=== PATIENT | female | born 1970 | race Caucasian/White ===

== ENCOUNTER → 2016-11-27 | Outpatient (REF) | payer MEDICARE, MEDICAID ==
[~2016-11-27] MED LIST: ABIL10TA; AMBI10TA; AMMONIUM LACTATE; COLA100C2; DEPA500T; KLON1TAB; MACR50CA; MACROBID; OXYB5TAB4; PAXI40TA; RISP1TAB; RISP2TAB12; SERO400T; SWEEN; THERGRAN
[2016-11-27 12:58] LABS: FREE T4 1.31 NG/DL (0.76-1.46)
== END ==
LOC: M SFHCLERA 09:46
PROVIDERS: ATTEND Family Medicine
DX: E03.9 Hypothyroidism, unspecified (principal); Z79.899 Other long term (current) drug therapy

== ENCOUNTER → 2016-12-19 | Outpatient (CLI) | payer MEDICARE, MEDICAID ==
[2016-12-19 07:02] LABS: BASO % 0.2 % (0.0-1.0); EOS % 0.8 % (0.0-3.0); LARGE UNSTAINED CELL # 0.1 K/mm3 (0.0-0.4); LARGE UNSTAINED CELL % 1.2 % (0.0-4.0); LYMPH # 1.8 K/mm3 (1.5-4.5); MEAN CORPUSCULAR HEMOGLOBIN 34.2 pg (27.0-33.0); MEAN CORPUSCULAR HGB CONC 33.4 g/dl (32.0-36.5); MEAN CORPUSCULAR VOLUME 102.4 fl (80.0-96.0); MONO # 0.3 K/mm3 (0.0-0.8); MONO % 5.4 % (0.0-5.0); NEUTROPHILS # 3.8 K/mm3 (1.8-7.7); NEUTROPHILS % 63.4 % (36.0-66.0); PLATELET COUNT, AUTOMATED 245 k/mm3 (150-450); RED CELL DISTRIBUTION WIDTH 12.1 % (11.5-14.5)
[2016-12-19 07:25] LABS: ALBUMIN 3.3 GM/DL (3.2-5.2); ALBUMIN/GLOBULIN RATIO 0.94 (1.00-1.93); BILIRUBIN,DIRECT 0.1 MG/DL (0.0-0.2); BILIRUBIN,TOTAL 0.3 MG/DL (0.2-1.0); TOTAL PROTEIN 6.8 GM/DL (6.4-8.2)
== END ==
LOC: M LAB 06:30
PROVIDERS: ATTEND Anesthesiology Pain Medicine
DX: Z79.899 Other long term (current) drug therapy (principal)

== ENCOUNTER → 2017-01-13 | Outpatient (CLI) | payer MEDICARE, MEDICAID ==
--- NOTE | 2017-01-13 10:42 | REPMRS ---
Patient History The patient states she had a clinical breast exam in 12/2016. Patient is nulliparous. Taking hormonal contraceptives for 13 years. Digital Woman Screen Mammo: January 13, 2017 - Exam #: [id number] Bilateral CC and MLO view(s) were taken. Technologist: Maral Ackerman, Technologist Prior study comparison: January 14, 2016, digital woman screen mammo performed at [facility]. January 11, 2015, digital woman screen mammo performed at [facility]. January 06, 2014, digital woman screen mammo performed at [facility]. FINDINGS: There are scattered fibroglandular densities. There has been no change in the appearance of the mammogram from the prior studies. There is a mild amount of scattered fibroglandular density which is fairly symmetric. There is no interval development of dominant mass, architectural distortion, or clustered microcalcification suggestive of malignancy. ASSESSMENT: BI-RADS/ACR category 1 mammogram. Negative. Recommendation Routine screening mammogram in 1 year (for women over age 40). This mammogram was interpreted with the aid of an FDA-approved computer-aided dectection system. Electronically Signed By: Ramirez Eubanks MD 01/13/17 [id number]
== END ==
LOC: M WHC 09:43
PROVIDERS: ATTEND Nurse Practitioner Family
DX: Z01.419 Encounter for gynecological examination (general) (routine) without abnormal findings (principal); Z12.31 Encounter for screening mammogram for malignant neoplasm of breast; Z92.89 Personal history of other medical treatment; Z92.0 Personal history of contraception
CPT/HCPCS: G0101; G0123; G0202

== ENCOUNTER → 2017-01-13 | Outpatient (REF) | payer MEDICARE, MEDICAID | LOC: M SFHCWAGY 10:07 | PROVIDERS: ATTEND Nurse Practitioner Family | DX: Z12.4 Encounter for screening for malignant neoplasm of cervix (principal) ==

== ENCOUNTER → 2017-09-27 | Outpatient (CLI) | payer MEDICARE, MEDICAID ==
[2017-09-27 17:16] LABS: BASO % 0.3 % (0.0-1.0); EOS % 0.2 % (0.0-3.0); HEMATOCRIT 41.3 % (36.0-47.0); HEMOGLOBIN 13.5 g/dl (12.0-16.0); IMMATURE GRANULOCYTE % 0.3 % (0-3.0); LYMPH # 1.9 10^3/uL (1.5-4.5); LYMPH % 29.1 % (24.0-44.0); MEAN CORPUSCULAR HEMOGLOBIN 33.9 pg (27.0-33.0); MEAN CORPUSCULAR HGB CONC 32.7 g/dl (32.0-36.5); MEAN CORPUSCULAR VOLUME 103.8 fl (80.0-96.0); MONO # 0.5 10^3/uL (0.0-0.8); MONO % 7.4 % (0.0-5.0); NEUTROPHILS # 4.1 10^3/uL (1.8-7.7); NEUTROPHILS % 62.7 % (36.0-66.0); PLATELET COUNT, AUTOMATED 257 10^3/uL (150-450); RED BLOOD COUNT 3.98 10^6/uL (4.00-5.40); RED CELL DISTRIBUTION WIDTH 12.8 % (11.5-14.5); WHITE BLOOD COUNT 6.6 10^3/uL (4.0-10.0)
[2017-09-27 18:18] LABS: ALBUMIN 3.5 GM/DL (3.2-5.2); ALBUMIN/GLOBULIN RATIO 0.97 (1.00-1.93); ALKALINE PHOSPHATASE 42 U/L (45-117); ALT/SGPT 15 U/L (12-78); AST/SGOT 9 U/L (7-37); BILIRUBIN,DIRECT < 0.1 MG/DL (0.0-0.2); BILIRUBIN,TOTAL 0.3 MG/DL (0.2-1.0); TOTAL PROTEIN 7.1 GM/DL (6.4-8.2); VALPROIC ACID (DEPAKOTE) 73.9 UG/ML (50.0-100.0)
== END ==
LOC: M WUC 09:17
DX: Z51.81 Encounter for therapeutic drug level monitoring (principal); Z79.899 Other long term (current) drug therapy
CPT/HCPCS: 80164

== ENCOUNTER → 2017-11-26 | Outpatient (REF) | payer MEDICARE, MEDICAID ==
[2017-11-26 17:44] LABS: ESTIMATED AVERAGE GLUCOSE 108 MG/DL (60-110); HEMOGLOBIN A1c 5.4 %
== END ==
LOC: M SFHCLERA 11:13
DX: E03.9 Hypothyroidism, unspecified (principal); Z13.1 Encounter for screening for diabetes mellitus; Z79.899 Other long term (current) drug therapy
CPT/HCPCS: 84443

== ENCOUNTER → 2018-01-14 | Outpatient (CLI) | payer MEDICARE, MEDICAID | LOC: M WHC 10:11 | DX: Z12.31 Encounter for screening mammogram for malignant neoplasm of breast (principal); Z01.411 Encounter for gynecological examination (general) (routine) with abnormal findings (principal); N81.10 Cystocele, unspecified | CPT/HCPCS: 77067 ==

== ENCOUNTER → 2018-09-04 | Outpatient (CLI) | payer MEDICARE, MEDICAID ==
[2018-09-04 11:57] LABS: FREE T4 1.08 NG/DL (0.76-1.46); THYROID STIMULATING HORMONE 1.92 uIU/ML (0.358-3.740)
[2018-09-06 00:08] LABS: HUMAN GROWTH HORMONE 0.1 ng/mL (0.0-10.0)
== END ==
LOC: M WUC 09:16
PROVIDERS: ATTEND Nurse Practitioner
DX: D35.2 Benign neoplasm of pituitary gland (principal); Z51.81 Encounter for therapeutic drug level monitoring; Z79.899 Other long term (current) drug therapy

== ENCOUNTER → 2018-09-04 | Outpatient (CLI) | payer MEDICARE, MEDICAID ==
[2018-09-04 12:00] LABS: CHOLESTEROL RISK RATIO 2.942 (<5)
== END ==
LOC: M WUC 09:26
PROVIDERS: ATTEND Psychiatry & Neurology Psychiatry
DX: Z79.899 Other long term (current) drug therapy (principal)

== ENCOUNTER 2018-10-16 12:48 | Emergency (ER) | payer MEDICARE, MEDICAID ==
[~2018-10-16] VITALS: Ht 167.6 cm; Wt 67.3 kg
[2018-10-16 12:48] VITALS: BP 132/64
[2018-10-16] MEDS ORDERED: SERT-155 (12:55)
[2018-10-16] MEDS ORDERED: BUPR150T3 PO (12:55)
[2018-10-16] MEDS ORDERED: PRAZ1CAP (12:55)
[2018-10-16] MEDS ORDERED: LEVO88TA3 (12:55)
[2018-10-16] MEDS ORDERED: TRAZ-160 PO (12:55)
[2018-10-16] MEDS ORDERED: KLON2TAB PO ×2 (13:25→13:37)
== END 2018-10-16 13:39 | disposition home or self-care (01) ==
LOC: M ED 12:48
DX: Z76.0 Encounter for issue of repeat prescription (principal); F41.9 Anxiety disorder, unspecified; F32.9 Major depressive disorder, single episode, unspecified; F43.10 Post-traumatic stress disorder, unspecified; Z79.899 Other long term (current) drug therapy; Z88.0 Allergy status to penicillin

== ENCOUNTER 2018-11-25 09:53 | Emergency (ER) | payer MEDICARE, MEDICAID ==
[~2018-11-25 09:53] MED LIST changes: +BUPR150T3 PO; +KLON2TAB PO; +LEVO88TA3; +PRAZ1CAP; +SERT-155; +TRAZ-160 PO
[2018-11-25] MEDS ORDERED: OXYB10TA (10:25)
[2018-11-25] MEDS ORDERED: DIVA500T94 (10:25)
[2018-11-25] MEDS ORDERED: CLON2TAB7 (10:25)
[2018-11-25] MEDS ORDERED: NITR100C2 (10:25)
[2018-11-25] MEDS ORDERED: CRYS28TA (10:25)
[2018-11-25] MEDS ORDERED: ADACEL/BOOSTRIX VACCINE (DIPHTH/PERTUSS/ACELL/TETANUS)0.5ML SYR (90715) IM ONE (11:00)
[2018-11-25] MEDS ORDERED: LIDOCAINE 1% MDV 20ML VIAL SC ONE (11:00)
--- NOTE | 2018-11-25 11:20 | REP ---
CT BRAIN WITHOUT CONTRAST: HISTORY: Trauma. No comparison brain CT. CT FINDINGS: Digital preliminary die developer radiograph shows no calvarial abnormality. Bone window settings demonstrate an intact bony calvarium. No skull fracture is appreciated. There is an area of scalp swelling and irregularity over the left superior orbital margin. No other scalp hematoma is appreciated. Visualized paranasal sinuses are clear. No intraorbital abnormality is seen. On soft tissue window settings, there is moderate generalized atrophy, unusual at this patient's age. There is no evidence of intracranial hemorrhage. No extra-axial fluid collection is seen. No mass or midline shift is observed. IMPRESSION: Moderate diffuse cerebral atrophy in this young woman. Mild left supraorbital scalp swelling. No skull fracture or intracranial injury. Electronically Signed by Harry Eubanks MD 11/25/2018 01:08 P
--- NOTE | 2018-11-25 11:27 | REP ---
MAXILLOFACIAL CT STUDY WITHOUT CONTRAST: HISTORY: Trauma. FINDINGS: There is some left frontal superior and periorbital margin scalp swelling. No orbital fracture is appreciated. There is a tiny area of opaque debris on the skin superolaterally in the left periorbital soft tissues. Zygomatic arches are intact. No maxillary or mandibular fracture is appreciated. The patient is status post extensive cervical spine fusion. The visualized paranasal sinuses are clear. No intraorbital abnormality is seen. There are is evidence of a focal deficit or old surgical or post traumatic fenestration in the nasal septum posteriorly and superiorly. The nasal turbinate soft tissues are unremarkable. No inflammatory changes are seen. IMPRESSION: Soft-tissue swelling in the left frontal soft tissues with a tiny focus of opaque debris on the skin at this level. No facial fractures seen. 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 Developmental, versus postsurgical versus granulomatous disease. No inflammatory changes are visible. Electronically Signed by Harry Eubanks MD 11/25/2018 01:08 P
--- NOTE | 2018-11-25 11:29 | REP ---
CT STUDY OF THE CERVICAL SPINE WITHOUT CONTRAST: HISTORY: Trauma. TECHNIQUE: Helical scanning is acquired. 2 mm axial images are reformatted. Coronal and sagittal MPR images are generated. CT FINDINGS: The patient is status post bilateral posterior element screw karina fusion from C3 through the upper thoracic spine. Extensive laminectomies are performed from C3 through C6. There is ventral fusion via bridging osteophytes from C5 through T1 anteriorly. Alignment is normal. Vertebral body heights are preserved. No vertebral fracture is appreciated. There is degenerative disc change at multiple levels. There is osteoarthritic change at the articulation between the dens and the anterior to C1. Lung apices are clear. No extra vertebral abnormality is observed. IMPRESSION: Extensive surgical changes with multiple levels of laminectomy, C3 through C6, bilateral C3 through upper T-spine fusion hardware. Degenerative changes. No traumatic abnormality noted. Electronically Signed by Harry Eubanks MD 11/25/2018 01:09 P
[2018-11-25] MEDS ORDERED: ACETAMINOPHEN TAB 650MG DOSE (2X325MG) PO ONE (13:00)
[2018-11-25 13:25] VITALS: BP 106/62
== END 2018-11-25 13:29 | disposition home or self-care (01) ==
LOC: EDBD 09:53 → M ED 09:53
DX: S01.81XA Laceration without foreign body of other part of head, initial encounter (principal); W01.0XXA Fall on same level from slipping, tripping and stumbling without subsequent striking against object, initial encounter; Y92.89 Other specified places as the place of occurrence of the external cause; R56.9 Unspecified convulsions; Z88.0 Allergy status to penicillin

== ENCOUNTER → 2018-12-02 | Outpatient (REF) | payer MEDICARE, MEDICAID ==
[~2018-12-02] MED LIST changes: +CLON2TAB7; +CRYS28TA; +DIVA500T94; +NITR100C2; +OXYB10TA; -TRAZ-160 PO; +TRAZ-252 PO
[2018-12-02 11:50] LABS: CHOLESTEROL RISK RATIO 2.8 (<5); THYROID STIMULATING HORMONE 2.44 uIU/ML (0.358-3.740)
[2018-12-02 12:06] LABS: HEMOGLOBIN A1c 4.9 %
== END ==
LOC: M SFHCLERA 08:45
PROVIDERS: ATTEND Family Medicine
DX: Z00.00 Encounter for general adult medical examination without abnormal findings (principal); E03.9 Hypothyroidism, unspecified
CPT/HCPCS: 80061; 83036; 84443; G0463

== ENCOUNTER → 2019-01-17 | Outpatient (CLI) | payer MEDICARE, MEDICAID ==
--- NOTE | 2019-01-17 12:38 | REPMRS ---
Patient History The patient states she had a clinical breast exam in 01/2019. Patient is nulliparous. Taking hormonal contraceptives for 15 years. 3D TOMOSYNTHESIS WAS PERFORMED. The [facility] lifetime risk for breast cancer is 12.6%. Digital Woman Screen Mammo: January 17, 2019 - Exam #: [id number] Bilateral CC and MLO view(s) were taken. Technologist: Maral Ackerman, Technologist Prior study comparison: January 14, 2018, bilateral digital woman screen mammo performed at [facility]. January 13, 2017, digital woman screen mammo performed at [facility]. FINDINGS: The breast tissue is heterogeneously dense. This may lower the sensitivity of mammography. There has been no change in the appearance of the mammogram from the prior studies. There is a moderate amount of residual fibroglandular tissue which is fairly symmetric. There is no interval development of dominant mass, areas of architectural distortion, or clustered microcalcification typical of malignancy. Assessment: BI-RADS/ACR category 1 mammogram. Negative Mammogram. Recommendation Routine screening mammogram in 1 year (for women over age 40). This mammogram was interpreted with the aid of an FDA-approved computer-aided dectection system. Electronically Signed By: Brant Person MD 01/17/19 [id number]
== END ==
LOC: M WHC 11:14
PROVIDERS: ATTEND Nurse Practitioner Family
DX: Z12.31 Encounter for screening mammogram for malignant neoplasm of breast (principal); Z92.0 Personal history of contraception

== ENCOUNTER → 2019-12-13 | Outpatient (REF) | payer MEDICARE, MEDICAID ==
[~2019-12-13] MED LIST changes: -OXYB10TA; +OXYB10TA23; -SERT-155; +SERT50TA29
== END ==
LOC: M SFHCLERA 12:33
PROVIDERS: ATTEND Family Medicine
DX: E03.9 Hypothyroidism, unspecified (principal)
CPT/HCPCS: 36415; 84443; G0463

== ENCOUNTER → 2020-01-18 | Outpatient (CLI) | payer MEDICARE ==
--- NOTE | 2020-01-18 11:49 | REPMRS ---
Patient History The patient states she had a clinical breast exam in January 2020. Taking hormonal contraceptives for 15 years. Digital Woman Screen Mammo: January 18, 2020 - Exam #: [id number] Bilateral CC and MLO view(s) were taken. Technologist: Sharon Fenton, Technologist Prior study comparison: January 17, 2019, bilateral digital woman screen mammo performed at [facility]. January 14, 2018, bilateral digital woman screen mammo performed at [facility]. January 13, 2017, digital woman screen mammo performed at [facility]. FINDINGS: The breast tissue is heterogeneously dense. This may lower the sensitivity of mammography. The Volpara volumetric breast density category is: C. There is a moderate amount of heterogeneously dense fibroglandular tissue which is fairly symmetric. There is no interval development of dominant mass, architectural distortion, or grouped microcalcification typical of malignancy. There has been no change in the appearance of the mammogram from the prior studies. Assessment: BI-RADS/ACR category 1 mammogram. Negative Mammogram. Recommendation Routine screening mammogram of both breasts in 1 year (for women over age 40). This patient's Lifetime Breast Cancer RIsk is estimated at 12.5 %. This mammogram was interpreted with the aid of an FDA-approved computer-aided dectection system. Electronically Signed By: Ramirez Eubanks MD 01/18/20 [id number]
== END ==
LOC: M WHC 10:40
PROVIDERS: ATTEND Nurse Practitioner Family
DX: Z12.31 Encounter for screening mammogram for malignant neoplasm of breast (principal); Z92.0 Personal history of contraception
CPT/HCPCS: 77067; G0101; G0123

== ENCOUNTER → 2020-01-18 | Outpatient (REF) | payer MEDICARE, MEDICAID | LOC: M SFHCWAGY 17:01 | PROVIDERS: ATTEND Nurse Practitioner Family | DX: Z12.4 Encounter for screening for malignant neoplasm of cervix (principal) ==

== ENCOUNTER → 2020-12-27 | Outpatient (CLI) | payer MEDICARE, MEDICAID ==
[~2020-12-27] MED LIST changes: +BUPR150T12 PO; -BUPR150T3 PO
[2020-12-27 08:24] LABS: CHOLESTEROL RISK RATIO 2.473 (<5); THYROID STIMULATING HORMONE 3.18 uIU/ML (0.358-3.740)
[2020-12-27 09:53] LABS: TOTAL 25(OH) VITAMIN D 38.8 NG/ML (30.0-100.0)
== END ==
LOC: M LAB 07:05
PROVIDERS: ATTEND Family Medicine
DX: Z00.00 Encounter for general adult medical examination without abnormal findings (principal); E03.9 Hypothyroidism, unspecified; E55.9 Vitamin D deficiency, unspecified

== ENCOUNTER → 2021-01-14 | Outpatient (CLI) | payer MEDICARE, MEDICAID | LOC: M LAB 07:02 | PROVIDERS: ATTEND Physician Assistant Medical | DX: R56.9 Unspecified convulsions (principal) ==

== ENCOUNTER → 2021-01-22 | Outpatient (CLI) | payer MEDICARE, MEDICAID ==
--- NOTE | 2021-01-22 14:54 | REPMRS ---
Patient History The patient states she had a clinical breast exam in January 2021. Patient is nulliparous. Taking hormonal contraceptives for 16 years. Pt denied . 2D CC views only due to pts condition, Pt unable to turn her head, [facility] client. Best images possible, Covid vaccines 07/26/20 right arm, 08/23/20 right arm. Patient states no breast complaints today. Patient has signed MRS History Sheet. Digital Woman Screen Mammo: January 22, 2021 - Exam #: [id number] Bilateral CC and MLO view(s) were taken. Technologist: RT Dorothy Prior study comparison: January 18, 2020, bilateral digital woman screen mammo performed at [facility]. January 17, 2019, bilateral digital woman screen mammo performed at [facility]. FINDINGS: The breast tissue is heterogeneously dense. This may lower the sensitivity of mammography. Screening. Digital screening (2D) mammography was performed bilaterally in the CC and MLO projections. Additionally, breast tomosynthesis (3D mammography) was performed bilaterally in the CC and MLO projections. Todays exam was compared to the prior exam/exams.There are no prior DBT images for comparison. By history, the patient has no complaints of a palpable breast abnormality or other significant breast complaints. The breasts are unchanged in size and shape. Dense heterogenous fibroglandular elements are seen bilaterally to such a degree that the sensitivity of the mammogram in detecting cancer is decreased. There are no caprice-soft tissue densities or spiculated masses. There is no internal architectural distortion. There are no suspicious caprice-calcific clusters. Skin thickening or nipple retraction is not present. IMPRESSION: BI-RADS Category 2- Benign Findings. There is no evidence of malignant alteration of the breasts. Followup examination recommended in one year. The Volpara volumetric breast density category is C, the breasts are heterogenously dense which may obscure small masses. This mammogram was read with the assistance of [employer],an FDA approved computer aided detection system for mammography. The lifetime Tyrer-Cuzick score is 12.3 % Due to the density of the breasts or Tyrer Cuzick score of 20% or greater, MRI/whole breast screening ultrasound is warranted. Negative x-ray reports should not delay surgical consultation if a dominant or clinically suspicious mass is present. Not all breast cancers can be identified by mammography. Therefore, we recommend that you continue to perform regular breast self-examination and physical examination and then promptly contact your physician of any concerns or changes. Adenosis and dense breasts may obscure an underlying neoplasm. Assessment: BI-RADS/ACR category 2 mammogram. Benign Findings. Recommendation Routine screening mammogram of both breasts in 1 year. Electronically Signed By: Timbo Matthews DO 01/22/21 [id number]
== END ==
LOC: M WHC 13:40
PROVIDERS: ATTEND Nurse Practitioner Women's Health
DX: Z12.31 Encounter for screening mammogram for malignant neoplasm of breast (principal); Z92.0 Personal history of contraception
CPT/HCPCS: 77063; 77067; G0101

== ENCOUNTER → 2021-08-07 | Outpatient (CLI) | payer MEDICARE, MEDICAID | LOC: M WUC 08:30 | PROVIDERS: ATTEND Physician Assistant Medical | DX: R56.9 Unspecified convulsions (principal) ==

== ENCOUNTER → 2021-08-28 | Outpatient (CLI) | payer MEDICARE, MEDICAID ==
[2021-08-28 12:23] LABS: HEMATOCRIT 33.1 % (36.0-47.0); HEMOGLOBIN 10.5 g/dl (12.0-15.5); MEAN CORPUSCULAR HEMOGLOBIN 32.9 pg (27.0-33.0); MEAN CORPUSCULAR HGB CONC 31.7 g/dl (32.0-36.5); MEAN CORPUSCULAR VOLUME 103.8 fl (80.0-96.0); PLATELET COUNT, AUTOMATED 384 10^3/uL (150-450); RED BLOOD COUNT 3.19 10^6/uL (4.00-5.40); WHITE BLOOD COUNT 10.6 10^3/uL (4.0-10.0)
[2021-08-28 12:53] LABS: ALBUMIN 2.6 GM/DL (3.2-5.2); BILIRUBIN,DIRECT 0.1 MG/DL (0.0-0.2); BILIRUBIN,TOTAL 0.2 MG/DL (0.2-1.0); TOTAL PROTEIN 6.2 GM/DL (6.4-8.2); VALPROIC ACID (DEPAKOTE) 132.1 UG/ML (50.0-100.0)
== END ==
LOC: M WUC 10:01
PROVIDERS: ATTEND Psychiatry & Neurology Psychiatry
DX: F43.10 Post-traumatic stress disorder, unspecified (principal); F91.9 Conduct disorder, unspecified; F71 Moderate intellectual disabilities

== ENCOUNTER 2021-08-30 11:58 | Emergency (ER) | payer MEDICARE, MEDICAID ==
[~2021-08-30] VITALS: Ht 165.1 cm; Wt 55.2 kg
[2021-08-30 12:14] VITALS: BP 132/87
== END 2021-08-30 13:42 | disposition left against medical advice (07) ==
LOC: M ED 11:58
DX: Z53.21 Procedure and treatment not carried out due to patient leaving prior to being seen by health care provider (principal)

== ENCOUNTER → 2021-09-23 | Outpatient (CLI) | payer MEDICARE, MEDICAID ==
[~2021-09-23] MED LIST changes: +E-Z-GAS II EFFERVESCENT PACKET (SODIUM BICARB./CITRIC ACID/SIMETHICONE) As Ordered ONE; +E-Z-HD 98% w/w 340GM SUSP BTL As Ordered ONE; +E-Z-PAQUE 96% w/w SUSP 176GM BTL As Ordered ONE
== END ==
LOC: M RAD 09:01
PROVIDERS: ATTEND Student in an Organized Health Care Education/Training Program
DX: R13.10 Dysphagia, unspecified (principal)

== ENCOUNTER → 2021-12-04 | Outpatient (CLI) | payer MEDICARE, MEDICAID ==
[~2021-12-04] MED LIST changes: +BARIUM SULFATE 700 MG TABLET (E-Z-DISK) As Ordered ONE; -E-Z-GAS II EFFERVESCENT PACKET (SODIUM BICARB./CITRIC ACID/SIMETHICONE) As Ordered ONE; -E-Z-HD 98% w/w 340GM SUSP BTL As Ordered ONE; +VARIBAR NECTAR 40% w/v 240ML SUSP BTL As Ordered ONE; +VARIBAR PUDDING 40% w/v 230ML TUBE As Ordered ONE
== END ==
LOC: M RAD 10:43
PROVIDERS: ATTEND Student in an Organized Health Care Education/Training Program
DX: R13.10 Dysphagia, unspecified (principal)

== ENCOUNTER → 2021-12-25 | Outpatient (CLI) | payer MEDICARE, MEDICAID ==
[~2021-12-25] MED LIST changes: -BARIUM SULFATE 700 MG TABLET (E-Z-DISK) As Ordered ONE; -E-Z-PAQUE 96% w/w SUSP 176GM BTL As Ordered ONE; -VARIBAR NECTAR 40% w/v 240ML SUSP BTL As Ordered ONE; -VARIBAR PUDDING 40% w/v 230ML TUBE As Ordered ONE
[2021-12-25 13:01] LABS: BASO % 0.2 % (0.0-1.0); EOS % 0.6 % (0.0-3.0); HEMATOCRIT 40.1 % (36.0-47.0); HEMOGLOBIN 13.1 g/dl (12.0-15.5); LYMPH # 1.8 10^3/uL (1.5-5.0); LYMPH % 34.3 % (24.0-44.0); MEAN CORPUSCULAR HEMOGLOBIN 31.9 pg (27.0-33.0); MEAN CORPUSCULAR HGB CONC 32.7 g/dl (32.0-36.5); MEAN CORPUSCULAR VOLUME 97.6 fl (80.0-96.0); MONO # 0.3 10^3/uL (0.0-0.8); MONO % 5.1 % (2.0-8.0); NEUTROPHILS # 3.1 10^3/uL (1.5-8.5); NEUTROPHILS % 59.6 % (36.0-66.0); PLATELET COUNT, AUTOMATED 299 10^3/uL (150-450); RED BLOOD COUNT 4.11 10^6/uL (4.00-5.40); WHITE BLOOD COUNT 5.1 10^3/uL (4.0-10.0)
[2021-12-25 13:55] LABS: ALBUMIN 3.7 GM/DL (3.2-5.2); ALT/SGPT 20 U/L (12-78); BILIRUBIN,TOTAL 0.3 MG/DL (0.2-1.0); BLOOD UREA NITROGEN 16 MG/DL (7-18); CALCIUM LEVEL 9.3 MG/DL (8.5-10.1); CARBON DIOXIDE LEVEL 33 MEQ/L (21-32); CHLORIDE LEVEL 106 MEQ/L (98-107); CREATININE FOR GFR 0.72 MG/DL (0.55-1.30); FREE T4 1.36 NG/DL (0.76-1.46); GLOMERULAR FILTRATION RATE > 60.0 (>51); GLUCOSE, FASTING 89 MG/DL (70-100); POTASSIUM SERUM 4.4 MEQ/L (3.5-5.1); PREALBUMIN 24.1 MG/DL (20.0-40.0); SODIUM LEVEL 142 MEQ/L (136-145); THYROID STIMULATING HORMONE 0.588 uIU/ML (0.358-3.740); TOTAL PROTEIN 6.9 GM/DL (6.4-8.2)
== END ==
LOC: M WUC 08:55
PROVIDERS: ATTEND Student in an Organized Health Care Education/Training Program
DX: R63.6 Underweight (principal); E03.9 Hypothyroidism, unspecified

== ENCOUNTER → 2022-02-20 | Outpatient (CLI) | payer MEDICARE, MEDICAID ==
[~2022-02-20] MED LIST changes: -CLON2TAB7; +CLON2TAB7 PO; +COLA100C5 PO; +FAMO20TA PO; -OXYB10TA23; +OXYB10TA23 PO; +RISP0.5T21 PO; +RISP1TAB42 PO; -SWEEN; +SWEEN TOP; +SYST1SOL OU; +VITA100093 PO; +VITMTA PO
== END ==
LOC: M LABSMTC 10:31
PROVIDERS: ATTEND Anesthesiology
DX: Z01.812 Encounter for preprocedural laboratory examination (principal); Z20.822 Contact with and (suspected) exposure to COVID-19

== ENCOUNTER 2022-02-25 13:05 | Day surgery (SDC) | payer MEDICARE, MEDICAID ==
[~2022-02-25] VITALS: Ht 167.6 cm; Wt 47.2 kg
[~2022-02-25 13:05] MED LIST changes: +LIDOCAINE 2% 100MG/5ML SDV (FOR ANES.) As Ordered ONE; +NS 1,000 ML IV ONE; +fentaNYL 100 MCG/2 ML INJECTION As Ordered ONE; +propofoL 200 MG/20 ML VIAL As Ordered ONE
[2022-02-25] MEDS ORDERED: MIDAZOLAM INJ 2MG/2ML VIAL (J2250 PER 1MG) As Ordered ONE (14:54)
[2022-02-25 15:45] VITALS: BP 106/58
== END 2022-02-25 15:56 | disposition home or self-care (01) ==
LOC: M OPP 13:05
PROVIDERS: ATTEND Internal Medicine Gastroenterology
DX: R13.10 Dysphagia, unspecified (principal); R05.9 Cough, unspecified; R63.4 Abnormal weight loss; R93.3 Abnormal findings on diagnostic imaging of other parts of digestive tract; K22.4 Dyskinesia of esophagus; K22.2 Esophageal obstruction; E03.9 Hypothyroidism, unspecified; F41.9 Anxiety disorder, unspecified; F32.A Depression, unspecified; F43.10 Post-traumatic stress disorder, unspecified; F79 Unspecified intellectual disabilities; G47.00 Insomnia, unspecified; F63.9 Impulse disorder, unspecified; E55.9 Vitamin D deficiency, unspecified; R56.9 Unspecified convulsions; Z88.0 Allergy status to penicillin; Z88.1 Allergy status to other antibiotic agents; Z79.890 Hormone replacement therapy; Z79.899 Other long term (current) drug therapy; Z82.49 Family history of ischemic heart disease and other diseases of the circulatory system
CPT/HCPCS: 43249; J2250; J3010

== ENCOUNTER → 2022-04-09 | Outpatient (REF) | payer MEDICARE, MEDICAID ==
[~2022-04-09] MED LIST changes: -LIDOCAINE 2% 100MG/5ML SDV (FOR ANES.) As Ordered ONE; -NS 1,000 ML IV ONE; -fentaNYL 100 MCG/2 ML INJECTION As Ordered ONE; -propofoL 200 MG/20 ML VIAL As Ordered ONE
== END ==
LOC: M LAB REF 21:06
PROVIDERS: ATTEND Student in an Organized Health Care Education/Training Program
DX: R82.90 Unspecified abnormal findings in urine (principal)

== ENCOUNTER → 2022-04-17 | Outpatient (REF) | payer MEDICARE, MEDICAID ==
[2022-04-17 14:30] LABS: APPEARANCE, URINE MANUAL CLEAR (CLEAR); COLOR, URINE MANUAL YELLOW (YELLOW); PROTEIN, URINE MANUAL NEGATIVE (NEGATIVE); SPECIFIC GRAVITY,URINE MANUAL 1.025 (1.002-1.035)
[2022-04-17 14:31] LABS: BILIRUBIN, URINE MANUAL NEGATIVE (NEGATIVE); BLOOD URINE MANUAL NEGATIVE (NEGATIVE); GLUCOSE, URINE (UA) MANUAL 1+(100 MG/DL) mg/dL (NEGATIVE); KETONE, URINE MANUAL NEGATIVE (NEGATIVE); LEUKOCYTE ESTERASE, URINE MAN NEGATIVE (NEGATIVE); NITRITE, URINE MANUAL NEGATIVE (NEGATIVE); UROBILINOGEN, URINE MANUAL NORMAL (NORMAL)
== END ==
LOC: M SFHCLERA 14:19
PROVIDERS: ATTEND Student in an Organized Health Care Education/Training Program
DX: R82.90 Unspecified abnormal findings in urine (principal)

== ENCOUNTER → 2022-04-17 | Outpatient (CLI) | payer MEDICARE, MEDICAID ==
[~2022-04-17] MED LIST changes: +E-Z-GAS II EFFERVESCENT PACKET (SODIUM BICARB./CITRIC ACID/SIMETHICONE) As Ordered ONE; +E-Z-HD 98% w/w 340GM SUSP BTL As Ordered ONE; +E-Z-PAQUE 96% w/w SUSP 176GM BTL As Ordered ONE
== END ==
LOC: M RAD 08:58
PROVIDERS: ATTEND Physician Assistant Medical
DX: R13.10 Dysphagia, unspecified (principal)

== ENCOUNTER → 2022-05-28 | Outpatient (CLI) | payer MEDICARE, MEDICAID ==
[~2022-05-28] MED LIST changes: -E-Z-GAS II EFFERVESCENT PACKET (SODIUM BICARB./CITRIC ACID/SIMETHICONE) As Ordered ONE; -E-Z-HD 98% w/w 340GM SUSP BTL As Ordered ONE; -E-Z-PAQUE 96% w/w SUSP 176GM BTL As Ordered ONE; +ISOVUE-370 76% 100ML VIAL As Ordered ONE
== END ==
LOC: M RAD 13:35
PROVIDERS: ATTEND Thoracic Surgery (Cardiothoracic Vascular Surgery)
DX: Q27.8 Other specified congenital malformations of peripheral vascular system (principal)
CPT/HCPCS: 70498; 71275; Q9967

== ENCOUNTER 2022-10-14 09:34 | Outpatient (RCR) | payer MEDICARE, MEDICAID ==
[~2022-10-14 09:34] MED LIST changes: -ISOVUE-370 76% 100ML VIAL As Ordered ONE
== END 2022-10-17 ==
LOC: M ST 09:34
PROVIDERS: ATTEND Thoracic Surgery (Cardiothoracic Vascular Surgery)
DX: R13.10 Dysphagia, unspecified (principal)

== ENCOUNTER → 2022-10-20 | Outpatient (CLI) | payer MEDICARE, MEDICAID ==
[2022-10-20 16:12] LABS: BASO % 0.2 % (0.0-1.0); HEMOGLOBIN 12.8 g/dl (12.0-15.5); LYMPH % 7.4 % (24.0-44.0); MEAN CORPUSCULAR HEMOGLOBIN 32.4 pg (27.0-33.0); MEAN CORPUSCULAR HGB CONC 32.8 g/dl (32.0-36.5); MEAN CORPUSCULAR VOLUME 98.7 fl (80.0-96.0); MONO % 7.3 % (2.0-8.0); NEUTROPHILS # 11.1 10^3/uL (1.5-8.5); NEUTROPHILS % 84.8 % (36.0-66.0); PLATELET COUNT, AUTOMATED 258 10^3/uL (150-450); RED BLOOD COUNT 3.95 10^6/uL (4.00-5.40); WHITE BLOOD COUNT 13.1 10^3/uL (4.0-10.0)
[2022-10-20 16:30] LABS: INR 0.93; PARTIAL THROMBOPLASTIN TIME 28.2 SECONDS (24.8-34.2); PROTHROMBIN TIME 12.7 SECONDS (12.5-14.5)
[2022-10-20 19:54] LABS: ALBUMIN 3.8 G/DL (3.2-5.2); ALKALINE PHOSPHATASE 86 U/L (46-116); ALT/SGPT 35 U/L (7.0-40); AST/SGOT 26 U/L (<34); BILIRUBIN,TOTAL 0.5 MG/DL (0.3-1.2); BLOOD UREA NITROGEN 27 MG/DL (9-23); CALCIUM LEVEL 9.2 MG/DL (8.5-10.1); CARBON DIOXIDE LEVEL 30 MMOL/L (20-31); CHLORIDE LEVEL 102 MMOL/L (98-107); CREATININE FOR GFR 0.44 MG/DL (0.55-1.30); GLOMERULAR FILTRATION RATE > 60.0 (>51); GLUCOSE, FASTING 109 MG/DL (60-100); POTASSIUM SERUM 4.1 MMOL/L (3.5-5.1); SODIUM LEVEL 139 MMOL/L (136-145); TOTAL PROTEIN 6.9 G/DL (5.7-8.2)
== END ==
LOC: M WUC 11:46
PROVIDERS: ATTEND Student in an Organized Health Care Education/Training Program
DX: Z01.818 Encounter for other preprocedural examination (principal); R91.8 Other nonspecific abnormal finding of lung field; J44.9 Chronic obstructive pulmonary disease, unspecified

== ENCOUNTER → 2022-12-22 | Outpatient (REF) | payer MEDICARE, MEDICAID ==
[2022-12-22 15:44] LABS: APPEARANCE, URINE HAZY (CLEAR); BACTERIA, URINE AUTO NEGATIVE (NEGATIVE); BILIRUBIN, URINE AUTO NEGATIVE (NEGATIVE); BLOOD, URINE BLOOD NEGATIVE (NEGATIVE); COLOR, URINE AMBER (YELLOW); GLUCOSE, URINE (UA) AUTO NEGATIVE (NEGATIVE); KETONE, URINE AUTO TRACE mg/dL (NEGATIVE); LEUKOCYTE ESTERASE, URINE AUTO NEGATIVE (NEGATIVE); MUCUS, URINE SMALL (NEGATIVE); NITRITE, URINE AUTO NEGATIVE (NEGATIVE); PROTEIN, URINE AUTO NEGATIVE (NEGATIVE); RBC, URINE AUTO 0 /HPF (0-3); SPECIFIC GRAVITY URINE AUTO 1.019 (1.002-1.035); SQUAMOUS EPITHELIAL CELL UR AU 1 /HPF (0-6); WBC, URINE AUTO 1 /HPF (0-3)
== END ==
LOC: M SFHCLERA 15:24
PROVIDERS: ATTEND Student in an Organized Health Care Education/Training Program
DX: R41.82 Altered mental status, unspecified (principal); N39.9 Disorder of urinary system, unspecified

== ENCOUNTER → 2023-01-16 | Outpatient (CLI) | payer MEDICARE, MEDICAID | LOC: M WHC 12:07 | PROVIDERS: ATTEND Nurse Practitioner Family | DX: Z12.31 Encounter for screening mammogram for malignant neoplasm of breast (principal) ==

== ENCOUNTER 2023-04-03 00:31 | Inpatient (IN) | payer MEDICARE, MEDICAID ==
[~2023-04-03] VITALS: Ht 167.6 cm; Wt 45.5 kg
[~2023-04-03 00:31] MED LIST changes: +CLON-952 PO; -KLON2TAB PO; -SERT50TA29; +SERT50TA29 PO
[2023-04-03 01:12] LABS: BASO % 0.2 % (0.0-1.0); HEMATOCRIT 33.3 % (36.0-47.0); HEMOGLOBIN 10.7 g/dl (12.0-15.5); LYMPH # 0.9 10^3/uL (1.5-5.0); LYMPH % 5.5 % (24.0-44.0); MEAN CORPUSCULAR HEMOGLOBIN 31.9 pg (27.0-33.0); MEAN CORPUSCULAR HGB CONC 32.1 g/dl (32.0-36.5); MEAN CORPUSCULAR VOLUME 99.4 fl (80.0-96.0); MONO # 0.6 10^3/uL (0.0-0.8); NEUTROPHILS # 14.1 10^3/uL (1.5-8.5); PLATELET COUNT, AUTOMATED 410 10^3/uL (150-450); RED BLOOD COUNT 3.35 10^6/uL (4.00-5.40); WHITE BLOOD COUNT 15.7 10^3/uL (4.0-10.0)
[2023-04-03 01:24] LABS: INR 1.34; PROTHROMBIN TIME 16.2 SECONDS (12.5-14.5)
[2023-04-03 01:30] LABS: AMORPHOUS SEDIMENT SMALL (NEGATIVE); APPEARANCE, URINE HAZY (CLEAR); BACTERIA, URINE AUTO NEGATIVE (NEGATIVE); BILIRUBIN, URINE AUTO NEGATIVE (NEGATIVE); BLOOD, URINE BLOOD NEGATIVE (NEGATIVE); COLOR, URINE AMBER (YELLOW); GLUCOSE, URINE (UA) AUTO NEGATIVE (NEGATIVE); KETONE, URINE AUTO TRACE mg/dL (NEGATIVE); LEUKOCYTE ESTERASE, URINE AUTO NEGATIVE (NEGATIVE); MUCUS, URINE LARGE (NEGATIVE); NITRITE, URINE AUTO NEGATIVE (NEGATIVE); PROTEIN, URINE AUTO 1+ mg/dL (NEGATIVE); RBC, URINE AUTO 1 /HPF (0-3); SPECIFIC GRAVITY URINE AUTO 1.027 (1.002-1.035); SQUAMOUS EPITHELIAL CELL UR AU 0 /HPF (0-6); WBC, URINE AUTO 3 /HPF (0-3)
[2023-04-03 01:35] LABS: CK-MB VALUE MASS < 1.0 NG/ML (<3.6)
[2023-04-03 01:37] LABS: ALBUMIN 2.7 G/DL (3.2-5.2); ALKALINE PHOSPHATASE 100 U/L (46-116); ALT/SGPT 20 U/L (7.0-40); AMYLASE 20 U/L (30-118); AST/SGOT 18 U/L (<34); BILIRUBIN,DIRECT 0.2 MG/DL (<0.4); BILIRUBIN,TOTAL 0.5 MG/DL (0.3-1.2); BLOOD UREA NITROGEN 22 MG/DL (9-23); CALCIUM LEVEL 8.8 MG/DL (8.5-10.1); CARBON DIOXIDE LEVEL 29 MMOL/L (20-31); CHLORIDE LEVEL 106 MMOL/L (98-107); CPK CREATINE PHOSPHOKINASE 143 U/L (34-145); CREATININE FOR GFR 0.58 MG/DL (0.55-1.30); GLOMERULAR FILTRATION RATE > 60.0 (>51); GLUCOSE, FASTING 132 MG/DL (60-100); MB/CK RELATIVE INDEX 0.69 (< OR =4); SODIUM LEVEL 145 MMOL/L (136-145); TOTAL PROTEIN 7.1 G/DL (5.7-8.2)
[2023-04-03 01:44] LABS: PROCALCITONIN 0.47 ng/ml
[2023-04-03] MEDS ORDERED: NS 1,000 ML IV ONE (02:00)
[2023-04-03] MEDS ORDERED: IBUP-1114 PO (02:10)
[2023-04-03] MEDS ORDERED: LevoFLOXacin IV 750 MG in IV 1 EA IV ONE (02:20)
[2023-04-03] MEDS ORDERED: GUAI100L6 PO (02:39)
[2023-04-03] MEDS ORDERED: NEOM28OI EXT (02:39)
[2023-04-03] MEDS ORDERED: ALUM320S3 PO (02:39)
[2023-04-03] MEDS ORDERED: CVS13CRE TOP (02:39)
[2023-04-03] MEDS ORDERED: ACET1TAB55 PO (02:46)
[2023-04-03] MEDS ORDERED: IPRATROPIUM 0.5MG/ALBUTEROL 2.5MG INH SOL UD 3ML (DUONEB) NEB ONE ×2 (03:10)
[2023-04-03] MEDS ORDERED: guaiFENesin SYRUP 200MG 10ML UDC PO PRN (05:10)
[2023-04-03] MEDS ORDERED: SYNT88TA2 PO (05:20)
[2023-04-03] MEDS ORDERED: RISP1SS PO (05:20)
[2023-04-03] MEDS ORDERED: ZOLO100T PO (05:20)
[2023-04-03] MEDS ORDERED: BUPR75TA69 PO (05:20)
[2023-04-03] MEDS ORDERED: TRAZ-257 PO (05:20)
[2023-04-03] MEDS ORDERED: OXYB5TAB11 PO (05:20)
[2023-04-03] MEDS ORDERED: IBUP-1720 PO (05:20)
[2023-04-03] MEDS ORDERED: TRIPOIN9 TOP (05:20)
[2023-04-03] MEDS ORDERED: CLON-952 PO (05:20)
[2023-04-03] MEDS ORDERED: RISP1SOL PO (05:20)
[2023-04-03] MEDS ORDERED: ALUM45SU PO (05:20)
[2023-04-03] MEDS ORDERED: [UNRECOGNIZED DRUG - CODE] EXT (05:20)
[2023-04-03] MEDS ORDERED: NITR25SU3 PO (05:20)
[2023-04-03] MEDS ORDERED: ACET-907 PO (05:20)
[2023-04-03] MEDS ORDERED: ANIMCHW9 PO (05:20)
[2023-04-03] MEDS ORDERED: SENN-23 PO (05:20)
[2023-04-03] MEDS ORDERED: MOISCRE4 EXT (05:20)
[2023-04-03] MEDS ORDERED: GUAI5EL PO (05:20)
[2023-04-03] MEDS ORDERED: PRAZ1CAP PO (05:20)
[2023-04-03] MEDS ORDERED: HOME MED LIST COMPLETE! XX SCH (05:25)
[2023-04-03] MEDS: LR 1,000 ML IV SCH ×2 (06:56→17:20)
[2023-04-03] MEDS: LEVOTHYROXINE 88MCG TABLET (0.088 MG) PO SCH (06:57)
[2023-04-03 09:50] VITALS: BP 110/70; TEMP 97.9; O2SAT 99
[2023-04-03] MEDS: SENOKOT S TAB PO SCH ×3 (10:53→20:50)
[2023-04-03] MEDS: clonazePAM 1 MG TAB PO SCH ×4 (10:53→20:53)
[2023-04-03] MEDS: POLYVINYL ALCOHOL OPHTH SOLN 15ML (LIQUITEARS) OU SCH ×4 (10:53→20:53)
[2023-04-03] MEDS: risperiDONE 1 MG TAB PO SCH (10:54)
[2023-04-03] MEDS: oxyBUTYnin 5 MG TAB PO SCH ×2 (10:54→20:50)
[2023-04-03] MEDS: SERTRALINE 100 MG TAB PO SCH (10:54)
[2023-04-03] MEDS: DOCUSATE SODIUM 100MG CAPSULE PO SCH ×2 (10:54→20:50)
[2023-04-03] MEDS: ENOXAPARIN 40MG/0.4ML SYRINGE (J1650 PER 10MG) SC SCH (10:55)
[2023-04-03] MEDS: ACETAMINOPHEN TAB 650MG DOSE (2X325MG) PO PRN (11:06)
[2023-04-03] MEDS: buPROPion 75 MG TAB PO SCH ×2 (12:07→20:50)
[2023-04-03] MEDS ORDERED: BARIUM SULFATE 700 MG TABLET (E-Z-DISK) As Ordered ONE (12:47)
[2023-04-03] MEDS ORDERED: VARIBAR NECTAR 40% w/v 240ML SUSP BTL As Ordered ONE (12:47)
[2023-04-03] MEDS ORDERED: VARIBAR PUDDING 40% w/v 230ML TUBE As Ordered ONE (12:47)
[2023-04-03] MEDS ORDERED: E-Z-PAQUE 96% w/w SUSP 176GM BTL As Ordered ONE (12:47)
[2023-04-03 14:00] VITALS: BP 109/69; TEMP 97.7; O2SAT 94
[2023-04-03] MEDS: LevoFLOXacin IV 750 MG in IV 1 EA IV SCH (17:19)
[2023-04-03] MEDS: risperiDONE 2 MG TAB PO SCH (20:49)
[2023-04-03] MEDS: traZODone 25MG PER 1/2 TABLET PO SCH (20:49)
[2023-04-03] MEDS: FAMOTIDINE 20 MG TAB PO SCH (20:50)
[2023-04-03] MEDS: traZODone 100 MG TAB PO SCH (20:50)
[2023-04-03] MEDS: PRAZOSIN 1 MG CAP PO SCH (20:52)
[2023-04-03 21:16] VITALS: BP 109/65; TEMP 99; O2SAT 95
[2023-04-04 05:33] VITALS: BP 109/63; TEMP 97.3; O2SAT 93
[2023-04-04] MEDS: LEVOTHYROXINE 88MCG TABLET (0.088 MG) PO SCH (05:40)
[2023-04-04 06:41] LABS: HEMATOCRIT 25.3 % (36.0-47.0); MEAN CORPUSCULAR HEMOGLOBIN 31.8 pg (27.0-33.0); MEAN CORPUSCULAR HGB CONC 32.4 g/dl (32.0-36.5); MEAN CORPUSCULAR VOLUME 98.1 fl (80.0-96.0); PLATELET COUNT, AUTOMATED 353 10^3/uL (150-450); RED BLOOD COUNT 2.58 10^6/uL (4.00-5.40); WHITE BLOOD COUNT 8.9 10^3/uL (4.0-10.0)
[2023-04-04 06:43] LABS: HEMOGLOBIN 8.2 g/dl (12.0-15.5)
[2023-04-04 07:16] LABS: BLOOD UREA NITROGEN 6 MG/DL (9-23); CALCIUM LEVEL 7.9 MG/DL (8.5-10.1); CARBON DIOXIDE LEVEL 29 MMOL/L (20-31); CHLORIDE LEVEL 107 MMOL/L (98-107); CREATININE FOR GFR 0.36 MG/DL (0.55-1.30); GLOMERULAR FILTRATION RATE > 60.0 (>51); GLUCOSE, FASTING 72 MG/DL (60-100); MAGNESIUM LEVEL 1.6 MG/DL (1.8-2.4); POTASSIUM SERUM 3.7 MMOL/L (3.5-5.1); SODIUM LEVEL 144 MMOL/L (136-145)
[2023-04-04] MEDS: SERTRALINE 100 MG TAB PO SCH (08:18)
[2023-04-04] MEDS: risperiDONE 1 MG TAB PO SCH (08:18)
[2023-04-04] MEDS: buPROPion 75 MG TAB PO SCH ×2 (08:19→20:30)
[2023-04-04] MEDS: clonazePAM 1 MG TAB PO SCH ×4 (08:20→20:30)
[2023-04-04] MEDS: DOCUSATE SODIUM 100MG CAPSULE PO SCH ×3 (08:20→20:30)
[2023-04-04] MEDS: oxyBUTYnin 5 MG TAB PO SCH ×2 (08:20→20:30)
[2023-04-04] MEDS: SENOKOT S TAB PO SCH ×2 (08:20→20:30)
[2023-04-04] MEDS: ENOXAPARIN 40MG/0.4ML SYRINGE (J1650 PER 10MG) SC SCH (08:21)
[2023-04-04] MEDS: POLYVINYL ALCOHOL OPHTH SOLN 15ML (LIQUITEARS) OU SCH ×4 (08:21→20:30)
[2023-04-04] MEDS: ACETAMINOPHEN TAB 650MG DOSE (2X325MG) PO PRN (09:52)
[2023-04-04 10:07] LABS: HEMATOCRIT 26.4 % (36.0-47.0); HEMOGLOBIN 8.6 g/dl (12.0-15.5)
[2023-04-04] MEDS ORDERED: MAG SULF 1GM/100ML (MAG RUN) 1 GM in IV 1 EA IV ONE (12:00)
[2023-04-04 12:08] LABS: MYCOPLASMA PNEUMONIAE IgG 486 U/mL (0-99); MYCOPLASMA PNEUMONIAE IgM 955 U/mL (0-769)
[2023-04-04 14:00] VITALS: BP 99/62; TEMP 97.7; O2SAT 96
[2023-04-04] MEDS: LevoFLOXacin IV 750 MG in IV 1 EA IV SCH (16:14)
[2023-04-04] MEDS: traZODone 100 MG TAB PO SCH (20:29)
[2023-04-04] MEDS: traZODone 25MG PER 1/2 TABLET PO SCH (20:29)
[2023-04-04] MEDS: risperiDONE 2 MG TAB PO SCH (20:30)
[2023-04-04] MEDS: FAMOTIDINE 20 MG TAB PO SCH (20:30)
[2023-04-04] MEDS: PRAZOSIN 1 MG CAP PO SCH (20:34)
[2023-04-04 22:00] VITALS: BP 107/60; TEMP 97.3; O2SAT 94
[2023-04-05] MEDS: LEVOTHYROXINE 88MCG TABLET (0.088 MG) PO SCH (05:45)
[2023-04-05 06:00] VITALS: BP 102/76; TEMP 99; O2SAT 96
[2023-04-05 06:40] LABS: HEMATOCRIT 26.9 % (36.0-47.0); HEMOGLOBIN 8.7 g/dl (12.0-15.5); MEAN CORPUSCULAR HEMOGLOBIN 32.1 pg (27.0-33.0); MEAN CORPUSCULAR HGB CONC 32.3 g/dl (32.0-36.5); MEAN CORPUSCULAR VOLUME 99.3 fl (80.0-96.0); PLATELET COUNT, AUTOMATED 381 10^3/uL (150-450); RED BLOOD COUNT 2.71 10^6/uL (4.00-5.40); WHITE BLOOD COUNT 11.2 10^3/uL (4.0-10.0)
[2023-04-05 06:52] LABS: BLOOD UREA NITROGEN 7 MG/DL (9-23); CARBON DIOXIDE LEVEL 32 MMOL/L (20-31); CHLORIDE LEVEL 105 MMOL/L (98-107); CREATININE FOR GFR 0.37 MG/DL (0.55-1.30); GLOMERULAR FILTRATION RATE > 60.0 (>51); GLUCOSE, FASTING 91 MG/DL (60-100); MAGNESIUM LEVEL 1.7 MG/DL (1.8-2.4); POTASSIUM SERUM 3.6 MMOL/L (3.5-5.1); SODIUM LEVEL 143 MMOL/L (136-145)
[2023-04-05 07:12] LABS: ATYPICAL LYMPH 1 % (0-5); LYMPHOCYTES 9 % (16-44); MONOCYTES 1 % (0-5); NEUTROPHILS 88 % (28-66)
[2023-04-05 07:13] LABS: PLATELET ESTIMATE NORMAL (NORMAL)
[2023-04-05] MEDS: SENOKOT S TAB PO SCH ×2 (08:54→22:06)
[2023-04-05] MEDS: oxyBUTYnin 5 MG TAB PO SCH ×2 (08:54→22:06)
[2023-04-05] MEDS: DOCUSATE SODIUM 100MG CAPSULE PO SCH ×2 (08:54→22:07)
[2023-04-05] MEDS: buPROPion 75 MG TAB PO SCH ×2 (08:54→22:05)
[2023-04-05] MEDS: clonazePAM 1 MG TAB PO SCH ×4 (08:54→22:04)
[2023-04-05] MEDS: SERTRALINE 100 MG TAB PO SCH (08:54)
[2023-04-05] MEDS: POLYVINYL ALCOHOL OPHTH SOLN 15ML (LIQUITEARS) OU SCH ×4 (08:55→22:06)
[2023-04-05] MEDS: ENOXAPARIN 40MG/0.4ML SYRINGE (J1650 PER 10MG) SC SCH (08:55)
[2023-04-05] MEDS ORDERED: MAG SULF 1GM/100ML (MAG RUN) 1 GM in IV 1 EA IV ONE (09:00)
[2023-04-05] MEDS: risperiDONE 1 MG TAB PO SCH (12:53)
[2023-04-05 14:00] VITALS: BP 110/56; TEMP 100.3; O2SAT 93
[2023-04-05] MEDS: LevoFLOXacin IV 750 MG in IV 1 EA IV SCH (15:59)
[2023-04-05 22:00] VITALS: BP 102/68; TEMP 97.7; O2SAT 92
[2023-04-05] MEDS: traZODone 25MG PER 1/2 TABLET PO SCH (22:03)
[2023-04-05] MEDS: traZODone 100 MG TAB PO SCH (22:04)
[2023-04-05] MEDS: risperiDONE 2 MG TAB PO SCH (22:04)
[2023-04-05] MEDS: FAMOTIDINE 20 MG TAB PO SCH (22:05)
[2023-04-05] MEDS: PRAZOSIN 1 MG CAP PO SCH (22:08)
[2023-04-06] MEDS: IPRATROPIUM 0.5MG/ALBUTEROL 2.5MG INH SOL UD 3ML (DUONEB) NEB PRN (04:40)
[2023-04-06 05:01] VITALS: O2SAT 98
[2023-04-06] MEDS: LEVOTHYROXINE 88MCG TABLET (0.088 MG) PO SCH (05:09)
[2023-04-06 05:49] LABS: BASO % 0.1 % (0.0-1.0); EOS % 0.1 % (0.0-3.0); HEMATOCRIT 27.1 % (36.0-47.0); HEMOGLOBIN 8.6 g/dl (12.0-15.5); LYMPH # 1.5 10^3/uL (1.5-5.0); LYMPH % 13.8 % (24.0-44.0); MEAN CORPUSCULAR HEMOGLOBIN 31.5 pg (27.0-33.0); MEAN CORPUSCULAR HGB CONC 31.7 g/dl (32.0-36.5); MEAN CORPUSCULAR VOLUME 99.3 fl (80.0-96.0); MONO # 0.6 10^3/uL (0.0-0.8); MONO % 5.5 % (2.0-8.0); NEUTROPHILS # 8.4 10^3/uL (1.5-8.5); NEUTROPHILS % 80.1 % (36.0-66.0); PLATELET COUNT, AUTOMATED 394 10^3/uL (150-450); RED BLOOD COUNT 2.73 10^6/uL (4.00-5.40); WHITE BLOOD COUNT 10.5 10^3/uL (4.0-10.0)
[2023-04-06 06:00] VITALS: BP 100/58; TEMP 98.1; O2SAT 96
[2023-04-06 06:11] LABS: BLOOD UREA NITROGEN 8 MG/DL (9-23); CALCIUM LEVEL 8.1 MG/DL (8.5-10.1); CARBON DIOXIDE LEVEL 30 MMOL/L (20-31); CHLORIDE LEVEL 103 MMOL/L (98-107); CREATININE FOR GFR 0.31 MG/DL (0.55-1.30); GLOMERULAR FILTRATION RATE > 60.0 (>51); GLUCOSE, FASTING 148 MG/DL (60-100); MAGNESIUM LEVEL 1.6 MG/DL (1.8-2.4); POTASSIUM SERUM 3.5 MMOL/L (3.5-5.1); SODIUM LEVEL 141 MMOL/L (136-145)
[2023-04-06] MEDS: oxyBUTYnin 5 MG TAB PO SCH ×2 (08:10→20:46)
[2023-04-06] MEDS: ENOXAPARIN 40MG/0.4ML SYRINGE (J1650 PER 10MG) SC SCH (08:10)
[2023-04-06] MEDS: clonazePAM 1 MG TAB PO SCH ×4 (08:10→20:47)
[2023-04-06] MEDS: risperiDONE 1 MG TAB PO SCH (08:11)
[2023-04-06] MEDS: POLYVINYL ALCOHOL OPHTH SOLN 15ML (LIQUITEARS) OU SCH ×4 (08:11→20:48)
[2023-04-06] MEDS: DOCUSATE SODIUM 100MG CAPSULE PO SCH ×2 (08:11→20:46)
[2023-04-06] MEDS: SENOKOT S TAB PO SCH ×2 (08:11→20:47)
[2023-04-06] MEDS: buPROPion 75 MG TAB PO SCH ×2 (08:11→20:46)
[2023-04-06] MEDS: SERTRALINE 100 MG TAB PO SCH (08:11)
[2023-04-06] MEDS ORDERED: MAG SULF 1GM/100ML (MAG RUN) 1 GM in IV 1 EA IV ONE (09:00)
[2023-04-06] MEDS: LevoFLOXacin 750 MG TABLET PO SCH (12:37)
[2023-04-06 14:00] VITALS: BP 110/65; TEMP 98.8; O2SAT 95
[2023-04-06 20:00] VITALS: BP 100/56; TEMP 97.9; O2SAT 95
[2023-04-06] MEDS: traZODone 25MG PER 1/2 TABLET PO SCH (20:46)
[2023-04-06] MEDS: FAMOTIDINE 20 MG TAB PO SCH (20:46)
[2023-04-06] MEDS: traZODone 100 MG TAB PO SCH (20:46)
[2023-04-06] MEDS: risperiDONE 2 MG TAB PO SCH (20:47)
[2023-04-06] MEDS: PRAZOSIN 1 MG CAP PO SCH (20:48)
[2023-04-06 21:50] VITALS: O2SAT 99
[2023-04-07] MEDS: LevoFLOXacin 750 MG TABLET PO SCH (05:38)
[2023-04-07] MEDS: LEVOTHYROXINE 88MCG TABLET (0.088 MG) PO SCH (05:38)
[2023-04-07 06:00] VITALS: BP 110/64; TEMP 98.1; O2SAT 92
[2023-04-07 06:10] LABS: HEMATOCRIT 27.4 % (36.0-47.0); HEMOGLOBIN 8.6 g/dl (12.0-15.5); MEAN CORPUSCULAR HEMOGLOBIN 31.3 pg (27.0-33.0); MEAN CORPUSCULAR HGB CONC 31.4 g/dl (32.0-36.5); MEAN CORPUSCULAR VOLUME 99.6 fl (80.0-96.0); PLATELET COUNT, AUTOMATED 396 10^3/uL (150-450); RED BLOOD COUNT 2.75 10^6/uL (4.00-5.40); WHITE BLOOD COUNT 9.2 10^3/uL (4.0-10.0)
[2023-04-07 06:45] LABS: BLOOD UREA NITROGEN 6 MG/DL (9-23); CALCIUM LEVEL 8.2 MG/DL (8.5-10.1); CARBON DIOXIDE LEVEL 34 MMOL/L (20-31); CHLORIDE LEVEL 103 MMOL/L (98-107); CREATININE FOR GFR 0.35 MG/DL (0.55-1.30); GLOMERULAR FILTRATION RATE > 60.0 (>51); GLUCOSE, FASTING 90 MG/DL (60-100); MAGNESIUM LEVEL 1.8 MG/DL (1.8-2.4); POTASSIUM SERUM 3.9 MMOL/L (3.5-5.1); SODIUM LEVEL 143 MMOL/L (136-145)
[2023-04-07 07:43] LABS: ATYPICAL LYMPH 1 % (0-5); HYPOCHROMASIA 1+; LYMPHOCYTES 22 % (16-44); MONOCYTES 4 % (0-5); NEUTROPHILS 73 % (28-66); PLATELET ESTIMATE NORMAL (NORMAL)
[2023-04-07 08:00] VITALS: BP 110/72; TEMP 97.3; O2SAT 93
[2023-04-07] MEDS: oxyBUTYnin 5 MG TAB PO SCH ×2 (08:19→20:39)
[2023-04-07] MEDS: DOCUSATE SODIUM 100MG CAPSULE PO SCH ×2 (08:19→20:39)
[2023-04-07] MEDS: SENOKOT S TAB PO SCH ×2 (08:19→20:40)
[2023-04-07] MEDS: SERTRALINE 100 MG TAB PO SCH (08:20)
[2023-04-07] MEDS: buPROPion 75 MG TAB PO SCH ×2 (08:20→20:39)
[2023-04-07] MEDS: risperiDONE 1 MG TAB PO SCH (08:20)
[2023-04-07] MEDS: clonazePAM 1 MG TAB PO SCH ×4 (08:21→20:44)
[2023-04-07] MEDS: POLYVINYL ALCOHOL OPHTH SOLN 15ML (LIQUITEARS) OU SCH ×4 (08:22→20:40)
[2023-04-07] MEDS: ENOXAPARIN 40MG/0.4ML SYRINGE (J1650 PER 10MG) SC SCH (08:22)
[2023-04-07] MEDS ORDERED: MAGNESIUM OXIDE 400MG TAB (MAG-OX) PO SCH (09:00)
[2023-04-07 14:00] VITALS: BP 110/70; TEMP 98.1; O2SAT 93
[2023-04-07 20:26] VITALS: BP 102/58; TEMP 97.7; O2SAT 94
[2023-04-07] MEDS: traZODone 25MG PER 1/2 TABLET PO SCH (20:39)
[2023-04-07] MEDS: traZODone 100 MG TAB PO SCH (20:39)
[2023-04-07] MEDS: FAMOTIDINE 20 MG TAB PO SCH (20:39)
[2023-04-07] MEDS: risperiDONE 2 MG TAB PO SCH (20:40)
[2023-04-07] MEDS: MAGNESIUM OXIDE 400MG TAB (MAG-OX) PO SCH (20:40)
[2023-04-07] MEDS: PRAZOSIN 1 MG CAP PO SCH (20:41)
[2023-04-07 21:41] VITALS: O2SAT 90
[2023-04-08] VITALS (12 sets, daily range): BP systolic 104–122; BP diastolic 60–65; TEMP 97–99; O2SAT 89–97
[2023-04-08] MEDS: LevoFLOXacin 750 MG TABLET PO SCH (05:35)
[2023-04-08] MEDS: LEVOTHYROXINE 88MCG TABLET (0.088 MG) PO SCH (05:35)
[2023-04-08 06:17] LABS: HEMOGLOBIN 8.8 g/dl (12.0-15.5); MEAN CORPUSCULAR HEMOGLOBIN 31.7 pg (27.0-33.0); MEAN CORPUSCULAR HGB CONC 31.4 g/dl (32.0-36.5); MEAN CORPUSCULAR VOLUME 100.7 fl (80.0-96.0); PLATELET COUNT, AUTOMATED 424 10^3/uL (150-450); RED BLOOD COUNT 2.78 10^6/uL (4.00-5.40); WHITE BLOOD COUNT 8.5 10^3/uL (4.0-10.0)
[2023-04-08 06:34] LABS: BLOOD UREA NITROGEN 6 MG/DL (9-23); CARBON DIOXIDE LEVEL 32 MMOL/L (20-31); CHLORIDE LEVEL 104 MMOL/L (98-107); CREATININE FOR GFR 0.34 MG/DL (0.55-1.30); GLOMERULAR FILTRATION RATE > 60.0 (>51); GLUCOSE, FASTING 79 MG/DL (60-100); MAGNESIUM LEVEL 1.6 MG/DL (1.8-2.4); POTASSIUM SERUM 4.4 MMOL/L (3.5-5.1); SODIUM LEVEL 143 MMOL/L (136-145)
[2023-04-08 06:38] LABS: ATYPICAL LYMPH 2 % (0-5); BASOPHILS 1 % (0-1); LYMPHOCYTES 33 % (16-44); MONOCYTES 8 % (0-5); NEUTROPHILS 56 % (28-66)
[2023-04-08 06:39] LABS: ANISOCYTOSIS 1+; HYPOCHROMASIA 1+; PLATELET ESTIMATE NORMAL (NORMAL)
[2023-04-08] MEDS ORDERED: MAG SULF 1GM/100ML (MAG RUN) 1 GM in IV 1 EA IV ONE (08:00)
[2023-04-08] MEDS ORDERED: METOPROLOL 5 MG/5 ML VIAL IV STA (08:40)
[2023-04-08 08:59] LABS: THYROID STIMULATING HORMONE 1.126 uIU/ML (0.55-4.78)
[2023-04-08] MEDS: SENOKOT S TAB PO SCH ×2 (09:08→20:54)
[2023-04-08] MEDS: ENOXAPARIN 40MG/0.4ML SYRINGE (J1650 PER 10MG) SC SCH (09:08)
[2023-04-08] MEDS: MAGNESIUM OXIDE 400MG TAB (MAG-OX) PO SCH ×2 (09:08→20:54)
[2023-04-08] MEDS: SERTRALINE 100 MG TAB PO SCH (09:09)
[2023-04-08] MEDS: buPROPion 75 MG TAB PO SCH ×2 (09:09→20:55)
[2023-04-08] MEDS: clonazePAM 1 MG TAB PO SCH ×4 (09:09→20:58)
[2023-04-08] MEDS: POLYVINYL ALCOHOL OPHTH SOLN 15ML (LIQUITEARS) OU SCH ×4 (09:10→20:54)
[2023-04-08] MEDS: risperiDONE 1 MG TAB PO SCH (09:10)
[2023-04-08] MEDS: oxyBUTYnin 5 MG TAB PO SCH ×2 (09:10→20:55)
[2023-04-08] MEDS: DOCUSATE SODIUM 100MG CAPSULE PO SCH ×2 (09:10→20:56)
[2023-04-08 10:05] LABS: CK-MB VALUE MASS < 1.0 NG/ML (<3.6)
[2023-04-08 10:06] LABS: CPK CREATINE PHOSPHOKINASE 31 U/L (34-145); MB/CK RELATIVE INDEX 3.22 (< OR =4)
[2023-04-08] MEDS ORDERED: ISOVUE-370 76% 100ML VIAL As Ordered ONE (12:38)
[2023-04-08] MEDS ORDERED: FUROSEMIDE 20MG/2ML VIAL IV ONE (17:00)
[2023-04-08] MEDS: risperiDONE 2 MG TAB PO SCH (20:54)
[2023-04-08] MEDS: PRAZOSIN 1 MG CAP PO SCH (20:54)
[2023-04-08] MEDS: traZODone 100 MG TAB PO SCH (20:54)
[2023-04-08] MEDS: FAMOTIDINE 20 MG TAB PO SCH (20:55)
[2023-04-08] MEDS: traZODone 25MG PER 1/2 TABLET PO SCH (20:55)
[2023-04-08 23:07] LABS: BODY FLUID CULTURE Not indicated. (.); LEGIONELLA ANTIGEN URINE Negative (Negative); ORGANISM ID Not indicated. (.); SPECIMEN SOURCE Urine (.); URINE STREP PNEUMONIAE ANTIGEN Negative (Negative)
[2023-04-09] VITALS: BP 102/60; TEMP 98.6; O2SAT 86
[2023-04-09 04:00] VITALS: BP 124/60; TEMP 98.3; O2SAT 97
[2023-04-09] MEDS: LEVOTHYROXINE 88MCG TABLET (0.088 MG) PO SCH (06:29)
[2023-04-09] MEDS: LevoFLOXacin 750 MG TABLET PO SCH (06:29)
[2023-04-09 06:33] LABS: HEMATOCRIT 30.5 % (36.0-47.0); HEMOGLOBIN 9.6 g/dl (12.0-15.5); MEAN CORPUSCULAR HEMOGLOBIN 31.7 pg (27.0-33.0); MEAN CORPUSCULAR HGB CONC 31.5 g/dl (32.0-36.5); MEAN CORPUSCULAR VOLUME 100.7 fl (80.0-96.0); PLATELET COUNT, AUTOMATED 490 10^3/uL (150-450); RED BLOOD COUNT 3.03 10^6/uL (4.00-5.40); WHITE BLOOD COUNT 7.8 10^3/uL (4.0-10.0)
[2023-04-09 06:50] LABS: BLOOD UREA NITROGEN 12 MG/DL (9-23); CALCIUM LEVEL 8.6 MG/DL (8.5-10.1); CARBON DIOXIDE LEVEL 32 MMOL/L (20-31); CHLORIDE LEVEL 100 MMOL/L (98-107); CREATININE FOR GFR 0.37 MG/DL (0.55-1.30); GLOMERULAR FILTRATION RATE > 60.0 (>51); GLUCOSE, FASTING 140 MG/DL (60-100); MAGNESIUM LEVEL 1.9 MG/DL (1.8-2.4); POTASSIUM SERUM 4.2 MMOL/L (3.5-5.1); SODIUM LEVEL 139 MMOL/L (136-145)
[2023-04-09] MEDS ORDERED: FUROSEMIDE 20MG/2ML VIAL IV ONE ×2 (07:00)
[2023-04-09 07:17] LABS: ATYPICAL LYMPH 11 % (0-5); EOSINOPHILS 2 % (0-3); LYMPHOCYTES 15 % (16-44); MONOCYTES 5 % (0-5); NEUTROPHILS 67 % (28-66)
[2023-04-09 07:18] LABS: PLATELET ESTIMATE INCREASED (NORMAL)
[2023-04-09 08:00] VITALS: BP_SYST 108; BP_SYST 99; BP_DIAS 58; BP_DIAS 68; TEMP 97.7; O2SAT 95
[2023-04-09] MEDS: IPRATROPIUM 0.5MG/ALBUTEROL 2.5MG INH SOL UD 3ML (DUONEB) NEB PRN (08:04)
[2023-04-09] MEDS: METOPROLOL TART 12.5 MG PER 1/2 TAB PO SCH ×2 (08:45→20:27)
[2023-04-09] MEDS: ENOXAPARIN 40MG/0.4ML SYRINGE (J1650 PER 10MG) SC SCH (08:57)
[2023-04-09] MEDS: SERTRALINE 100 MG TAB PO SCH (08:58)
[2023-04-09] MEDS: oxyBUTYnin 5 MG TAB PO SCH ×2 (08:58→21:41)
[2023-04-09] MEDS: clonazePAM 1 MG TAB PO SCH ×4 (08:58→21:41)
[2023-04-09] MEDS: buPROPion 75 MG TAB PO SCH ×2 (08:58→21:42)
[2023-04-09] MEDS: DOCUSATE SODIUM 100MG CAPSULE PO SCH ×2 (08:59→21:00)
[2023-04-09] MEDS: SENOKOT S TAB PO SCH ×2 (08:59→21:41)
[2023-04-09] MEDS: MAGNESIUM OXIDE 400MG TAB (MAG-OX) PO SCH ×2 (08:59→21:41)
[2023-04-09] MEDS: POLYVINYL ALCOHOL OPHTH SOLN 15ML (LIQUITEARS) OU SCH ×4 (09:00→21:42)
[2023-04-09] MEDS: risperiDONE 1 MG TAB PO SCH (09:09)
[2023-04-09 10:09] LABS: CHLAMYDIA PNEUMONIAE IgG <1:100 (< 1:100); CHLAMYDIA PNEUMONIAE IgM <1:10 (< 1:10); CHLAMYDIA PSITTACI IgG <1:100 (< 1:100); CHLAMYDIA PSITTACI IgM <1:10 (< 1:10); CHLAMYDIA TRACHOMATIS IgG <1:100 (< 1:100); CHLAMYDIA TRACHOMATIS IgM <1:10 (< 1:10)
[2023-04-09 12:00] VITALS: BP 98/62; TEMP 97.8
[2023-04-09 16:00] VITALS: BP 99/57; TEMP 98.6; O2SAT 93
[2023-04-09 19:50] VITALS: BP 102/54; TEMP 96.8; O2SAT 96
[2023-04-09] MEDS: risperiDONE 2 MG TAB PO SCH (21:41)
[2023-04-09] MEDS: traZODone 100 MG TAB PO SCH (21:41)
[2023-04-09] MEDS: FAMOTIDINE 20 MG TAB PO SCH (21:41)
[2023-04-09] MEDS: traZODone 25MG PER 1/2 TABLET PO SCH (21:42)
[2023-04-09] MEDS: PRAZOSIN 1 MG CAP PO SCH (21:42)
[2023-04-10] VITALS (24 sets, daily range): BP systolic 98–116; BP diastolic 52–67; TEMP 96.2–98.4; O2SAT 88–100
[2023-04-10 05:51] LABS: BASO % 0.4 % (0.0-1.0); EOS # 0.1 10^3/uL (0.0-0.5); EOS % 0.9 % (0.0-3.0); HEMATOCRIT 31.2 % (36.0-47.0); HEMOGLOBIN 9.8 g/dl (12.0-15.5); LYMPH # 1.8 10^3/uL (1.5-5.0); LYMPH % 23.8 % (24.0-44.0); MEAN CORPUSCULAR HEMOGLOBIN 30.9 pg (27.0-33.0); MEAN CORPUSCULAR HGB CONC 31.4 g/dl (32.0-36.5); MEAN CORPUSCULAR VOLUME 98.4 fl (80.0-96.0); MONO # 0.5 10^3/uL (0.0-0.8); MONO % 6.7 % (2.0-8.0); NEUTROPHILS # 5.1 10^3/uL (1.5-8.5); NEUTROPHILS % 67.8 % (36.0-66.0); PLATELET COUNT, AUTOMATED 520 10^3/uL (150-450); RED BLOOD COUNT 3.17 10^6/uL (4.00-5.40); WHITE BLOOD COUNT 7.6 10^3/uL (4.0-10.0)
[2023-04-10] MEDS: LEVOTHYROXINE 88MCG TABLET (0.088 MG) PO SCH (06:12)
[2023-04-10] MEDS: LevoFLOXacin 750 MG TABLET PO SCH (06:12)
[2023-04-10 06:16] LABS: ALBUMIN 2.2 G/DL (3.2-5.2); ALKALINE PHOSPHATASE 78 U/L (46-116); ALT/SGPT 19 U/L (7.0-40); AST/SGOT 34 U/L (<34); BILIRUBIN,TOTAL 0.2 MG/DL (0.3-1.2); BLOOD UREA NITROGEN 15 MG/DL (9-23); CALCIUM LEVEL 8.8 MG/DL (8.5-10.1); CARBON DIOXIDE LEVEL 37 MMOL/L (20-31); CHLORIDE LEVEL 100 MMOL/L (98-107); CREATININE FOR GFR 0.41 MG/DL (0.55-1.30); GLOMERULAR FILTRATION RATE > 60.0 (>51); GLUCOSE, FASTING 95 MG/DL (60-100); MAGNESIUM LEVEL 2.1 MG/DL (1.8-2.4); POTASSIUM SERUM 4.4 MMOL/L (3.5-5.1); SODIUM LEVEL 142 MMOL/L (136-145); TOTAL PROTEIN 6.9 G/DL (5.7-8.2)
[2023-04-10 08:10] LABS: PROCALCITONIN 0.05 ng/ml
[2023-04-10] MEDS: METOPROLOL TART 12.5 MG PER 1/2 TAB PO SCH ×2 (08:33→22:11)
[2023-04-10] MEDS: clonazePAM 1 MG TAB PO SCH ×4 (08:33→22:19)
[2023-04-10] MEDS: SERTRALINE 100 MG TAB PO SCH (08:33)
[2023-04-10] MEDS: ENOXAPARIN 40MG/0.4ML SYRINGE (J1650 PER 10MG) SC SCH (08:33)
[2023-04-10] MEDS: MAGNESIUM OXIDE 400MG TAB (MAG-OX) PO SCH ×2 (08:34→22:19)
[2023-04-10] MEDS: POLYVINYL ALCOHOL OPHTH SOLN 15ML (LIQUITEARS) OU SCH ×4 (08:34→22:21)
[2023-04-10] MEDS: oxyBUTYnin 5 MG TAB PO SCH ×2 (08:34→22:20)
[2023-04-10] MEDS: SENOKOT S TAB PO SCH ×2 (08:34→22:18)
[2023-04-10] MEDS: DOCUSATE SODIUM 100MG CAPSULE PO SCH ×2 (08:34→22:21)
[2023-04-10] MEDS: buPROPion 75 MG TAB PO SCH ×2 (08:34→22:19)
[2023-04-10] MEDS: guaiFENesin ER TABLET 600 MG TAB PO SCH ×2 (09:00→22:12)
[2023-04-10] MEDS: risperiDONE 1 MG TAB PO SCH (09:42)
[2023-04-10] MEDS: LEVALBUTEROL 1.25MG 0.5ML CONCENTRATE NEB NEB SCH ×3 (11:25→19:11)
[2023-04-10] MEDS: LEVALBUTEROL 1.25MG 0.5ML CONCENTRATE NEB NEB PRN (17:44)
[2023-04-10] MEDS: traZODone 25MG PER 1/2 TABLET PO SCH (22:18)
[2023-04-10] MEDS: PRAZOSIN 1 MG CAP PO SCH (22:19)
[2023-04-10] MEDS: FAMOTIDINE 20 MG TAB PO SCH (22:20)
[2023-04-10] MEDS: traZODone 100 MG TAB PO SCH (22:20)
[2023-04-10] MEDS: risperiDONE 2 MG TAB PO SCH (22:20)
[2023-04-11] VITALS (22 sets, daily range): BP systolic 98–118; BP diastolic 50–71; TEMP 97–98.6; O2SAT 88–100
[2023-04-11 05:43] LABS: BASO % 0.2 % (0.0-1.0); EOS % 0.3 % (0.0-3.0); HEMATOCRIT 31.6 % (36.0-47.0); LYMPH # 1.5 10^3/uL (1.5-5.0); LYMPH % 11.9 % (24.0-44.0); MEAN CORPUSCULAR HEMOGLOBIN 31.5 pg (27.0-33.0); MEAN CORPUSCULAR HGB CONC 31.6 g/dl (32.0-36.5); MEAN CORPUSCULAR VOLUME 99.7 fl (80.0-96.0); MONO # 0.7 10^3/uL (0.0-0.8); MONO % 5.2 % (2.0-8.0); NEUTROPHILS # 10.5 10^3/uL (1.5-8.5); PLATELET COUNT, AUTOMATED 519 10^3/uL (150-450); RED BLOOD COUNT 3.17 10^6/uL (4.00-5.40); WHITE BLOOD COUNT 12.8 10^3/uL (4.0-10.0)
[2023-04-11 06:06] LABS: ALBUMIN 2.3 G/DL (3.2-5.2); ALKALINE PHOSPHATASE 81 U/L (46-116); ALT/SGPT 24 U/L (7.0-40); AST/SGOT 42 U/L (<34); BILIRUBIN,TOTAL 0.2 MG/DL (0.3-1.2); BLOOD UREA NITROGEN 23 MG/DL (9-23); CALCIUM LEVEL 8.7 MG/DL (8.5-10.1); CARBON DIOXIDE LEVEL 36 MMOL/L (20-31); CHLORIDE LEVEL 104 MMOL/L (98-107); CREATININE FOR GFR 0.42 MG/DL (0.55-1.30); GLOMERULAR FILTRATION RATE > 60.0 (>51); GLUCOSE, FASTING 103 MG/DL (60-100); MAGNESIUM LEVEL 2.2 MG/DL (1.8-2.4); POTASSIUM SERUM 4.7 MMOL/L (3.5-5.1); SODIUM LEVEL 143 MMOL/L (136-145); TOTAL PROTEIN 6.9 G/DL (5.7-8.2)
[2023-04-11] MEDS: LEVOTHYROXINE 88MCG TABLET (0.088 MG) PO SCH (06:18)
[2023-04-11] MEDS: LevoFLOXacin 750 MG TABLET PO SCH (06:18)
[2023-04-11] MEDS: LEVALBUTEROL 1.25MG 0.5ML CONCENTRATE NEB NEB SCH ×4 (07:26→19:17)
[2023-04-11] MEDS ORDERED: methylPREDNISolone 125MG 2ML VIAL IV ONE (09:00)
[2023-04-11] MEDS: guaiFENesin ER TABLET 600 MG TAB PO SCH ×2 (09:00→20:56)
[2023-04-11] MEDS: DOCUSATE SODIUM 100MG CAPSULE PO SCH ×2 (09:00→20:55)
[2023-04-11] MEDS: buPROPion 75 MG TAB PO SCH ×2 (10:23→20:54)
[2023-04-11] MEDS: METOPROLOL TART 12.5 MG PER 1/2 TAB PO SCH ×2 (10:23→20:55)
[2023-04-11] MEDS: SERTRALINE 100 MG TAB PO SCH (10:24)
[2023-04-11] MEDS: risperiDONE 1 MG TAB PO SCH (10:25)
[2023-04-11] MEDS: MAGNESIUM OXIDE 400MG TAB (MAG-OX) PO SCH ×2 (10:25→20:53)
[2023-04-11] MEDS: SENOKOT S TAB PO SCH ×2 (10:25→20:55)
[2023-04-11] MEDS: oxyBUTYnin 5 MG TAB PO SCH ×2 (10:25→20:54)
[2023-04-11] MEDS: clonazePAM 1 MG TAB PO SCH ×4 (10:26→20:54)
[2023-04-11] MEDS: ENOXAPARIN 40MG/0.4ML SYRINGE (J1650 PER 10MG) SC SCH (10:27)
[2023-04-11] MEDS: MEROPENEM INJ 1 GM in IV 1 EA IV SCH ×2 (10:27→18:36)
[2023-04-11] MEDS: POLYVINYL ALCOHOL OPHTH SOLN 15ML (LIQUITEARS) OU SCH ×4 (10:28→20:53)
[2023-04-11] MEDS ORDERED: VANCOMYCIN HCL 750 MG, VIAL MATE ADAPTER 1 EACH in D5W 250 ML IV ONE (11:00)
[2023-04-11] MEDS: D5W/0.9% SODIUM CHLORIDE 1,000 ML IV SCH (11:40)
[2023-04-11] MEDS: DOXYCYCLINE HYCLATE 100 MG in D5W MINI-BAG PLUS 100 ML IV SCH (15:05)
[2023-04-11] MEDS ORDERED: VANCOMYCIN HCL 750 MG, VIAL MATE ADAPTER 1 EACH in D5W 250 ML IV SCH (17:00)
[2023-04-11] MEDS ORDERED: fentaNYL 100 MCG/2 ML INJECTION IV ONE (17:15)
[2023-04-11] MEDS: FLUCONAZOLE 200 MG in IV 1 EA IV SCH (17:29)
[2023-04-11] MEDS: LACTOBACILLUS ACIDOPHILUS CAP (BACID) PO SCH ×2 (17:29→20:53)
[2023-04-11] MEDS: FAMOTIDINE 20 MG TAB PO SCH (20:53)
[2023-04-11] MEDS: traZODone 25MG PER 1/2 TABLET PO SCH (20:54)
[2023-04-11] MEDS: traZODone 100 MG TAB PO SCH (20:54)
[2023-04-11] MEDS: PRAZOSIN 1 MG CAP PO SCH (20:55)
[2023-04-11] MEDS: risperiDONE 2 MG TAB PO SCH (20:55)
[2023-04-12] VITALS (26 sets, daily range): BP systolic 102–118; BP diastolic 53–67; TEMP 97.1–99.8; O2SAT 91–100
[2023-04-12] MEDS: LEVALBUTEROL 1.25MG 0.5ML CONCENTRATE NEB NEB PRN (01:05)
[2023-04-12] MEDS: MEROPENEM INJ 1 GM in IV 1 EA IV SCH ×3 (01:38→17:50)
[2023-04-12] MEDS: D5W/0.9% SODIUM CHLORIDE 1,000 ML IV SCH ×3 (02:00→21:42)
[2023-04-12] MEDS: DOXYCYCLINE HYCLATE 100 MG in D5W MINI-BAG PLUS 100 ML IV SCH ×2 (02:06→14:21)
[2023-04-12 05:32] LABS: HEMATOCRIT 28.3 % (36.0-47.0); HEMOGLOBIN 8.9 g/dl (12.0-15.5); MEAN CORPUSCULAR HEMOGLOBIN 31.6 pg (27.0-33.0); MEAN CORPUSCULAR HGB CONC 31.4 g/dl (32.0-36.5); MEAN CORPUSCULAR VOLUME 100.4 fl (80.0-96.0); PLATELET COUNT, AUTOMATED 502 10^3/uL (150-450); RED BLOOD COUNT 2.82 10^6/uL (4.00-5.40); WHITE BLOOD COUNT 17.4 10^3/uL (4.0-10.0)
[2023-04-12 06:01] LABS: ALKALINE PHOSPHATASE 70 U/L (46-116); ALT/SGPT 18 U/L (7.0-40); AST/SGOT 28 U/L (<34); BILIRUBIN,TOTAL 0.2 MG/DL (0.3-1.2); BLOOD UREA NITROGEN 23 MG/DL (9-23); CALCIUM LEVEL 8.3 MG/DL (8.5-10.1); CARBON DIOXIDE LEVEL 33 MMOL/L (20-31); CHLORIDE LEVEL 107 MMOL/L (98-107); CREATININE FOR GFR 0.37 MG/DL (0.55-1.30); GLOMERULAR FILTRATION RATE > 60.0 (>51); GLUCOSE, FASTING 127 MG/DL (60-100); POTASSIUM SERUM 3.9 MMOL/L (3.5-5.1); SODIUM LEVEL 145 MMOL/L (136-145); TOTAL PROTEIN 6.1 G/DL (5.7-8.2)
[2023-04-12] MEDS: LEVOTHYROXINE 88MCG TABLET (0.088 MG) PO SCH (06:04)
[2023-04-12] MEDS: LEVALBUTEROL 1.25MG 0.5ML CONCENTRATE NEB NEB SCH ×3 (07:26→19:20)
[2023-04-12] MEDS: METOPROLOL TART 12.5 MG PER 1/2 TAB PO SCH (09:00)
[2023-04-12] MEDS: DOCUSATE SODIUM 100MG CAPSULE PO SCH ×2 (09:00→20:00)
[2023-04-12] MEDS: ENOXAPARIN 40MG/0.4ML SYRINGE (J1650 PER 10MG) SC SCH (09:25)
[2023-04-12] MEDS: guaiFENesin SYRUP 200MG 10ML UDC PO SCH ×4 (09:25→20:01)
[2023-04-12] MEDS: LACTOBACILLUS ACIDOPHILUS CAP (BACID) PO SCH ×3 (09:41→20:00)
[2023-04-12] MEDS: POLYVINYL ALCOHOL OPHTH SOLN 15ML (LIQUITEARS) OU SCH ×4 (09:41→21:28)
[2023-04-12] MEDS: SERTRALINE 100 MG TAB PO SCH (09:41)
[2023-04-12] MEDS: MAGNESIUM OXIDE 400MG TAB (MAG-OX) PO SCH (09:42)
[2023-04-12] MEDS: buPROPion 75 MG TAB PO SCH (09:42)
[2023-04-12] MEDS: risperiDONE 1 MG TAB PO SCH (09:42)
[2023-04-12] MEDS: SENOKOT S TAB PO SCH ×2 (09:42→20:01)
[2023-04-12] MEDS: oxyBUTYnin 5 MG TAB PO SCH (09:42)
[2023-04-12] MEDS: clonazePAM 1 MG TAB PO SCH ×2 (09:42→13:00)
[2023-04-12] MEDS ORDERED: ACETAMINOPHEN 650MG SUPP PR PRN (15:25)
[2023-04-12] MEDS: FLUCONAZOLE 200 MG in IV 1 EA IV SCH (16:27)
[2023-04-12] MEDS: LORazepam 2 MG/ML 1ML VIAL IV SCH ×2 (16:27→21:28)
[2023-04-12] MEDS: SODIUM CHLORIDE HYPERTONIC 3% 15ML NEB SOL INH SCH (19:20)
[2023-04-12] MEDS: PANTOPRAZOLE 40MG VIAL IV SCH (21:28)
[2023-04-13] VITALS (12 sets, daily range): BP systolic 112–121; BP diastolic 56–74; TEMP 96.1–100.3; O2SAT 89–100
[2023-04-13] MEDS: guaiFENesin SYRUP 200MG 10ML UDC PO SCH ×7 (01:00→23:25)
[2023-04-13] MEDS: MEROPENEM INJ 1 GM in IV 1 EA IV SCH ×3 (01:47→18:51)
[2023-04-13] MEDS: DOXYCYCLINE HYCLATE 100 MG in D5W MINI-BAG PLUS 100 ML IV SCH ×2 (03:51→16:03)
[2023-04-13 06:15] LABS: HEMATOCRIT 27.6 % (36.0-47.0); HEMOGLOBIN 8.9 g/dl (12.0-15.5); MEAN CORPUSCULAR HEMOGLOBIN 32.4 pg (27.0-33.0); MEAN CORPUSCULAR HGB CONC 32.2 g/dl (32.0-36.5); MEAN CORPUSCULAR VOLUME 100.4 fl (80.0-96.0); PLATELET COUNT, AUTOMATED 482 10^3/uL (150-450); RED BLOOD COUNT 2.75 10^6/uL (4.00-5.40); WHITE BLOOD COUNT 17.2 10^3/uL (4.0-10.0)
[2023-04-13 06:42] LABS: ALBUMIN 1.8 G/DL (3.2-5.2); ALKALINE PHOSPHATASE 69 U/L (46-116); ALT/SGPT 16 U/L (7.0-40); AST/SGOT 20 U/L (<34); BILIRUBIN,TOTAL 0.2 MG/DL (0.3-1.2); BLOOD UREA NITROGEN 16 MG/DL (9-23); CALCIUM LEVEL 8.1 MG/DL (8.5-10.1); CARBON DIOXIDE LEVEL 31 MMOL/L (20-31); CHLORIDE LEVEL 111 MMOL/L (98-107); CREATININE FOR GFR 0.28 MG/DL (0.55-1.30); GLOMERULAR FILTRATION RATE > 60.0 (>51); GLUCOSE, FASTING 103 MG/DL (60-100); POTASSIUM SERUM 3.7 MMOL/L (3.5-5.1); SODIUM LEVEL 145 MMOL/L (136-145); TOTAL PROTEIN 5.6 G/DL (5.7-8.2)
[2023-04-13] MEDS: SODIUM CHLORIDE HYPERTONIC 3% 15ML NEB SOL INH SCH ×4 (07:58→19:24)
[2023-04-13] MEDS: LEVALBUTEROL 1.25MG 0.5ML CONCENTRATE NEB NEB SCH ×4 (07:58→19:24)
[2023-04-13] MEDS: LACTOBACILLUS ACIDOPHILUS CAP (BACID) PO SCH ×3 (08:03→20:10)
[2023-04-13] MEDS: SENOKOT S TAB PO SCH ×2 (08:03→20:10)
[2023-04-13] MEDS: DOCUSATE SODIUM 100MG CAPSULE PO SCH ×2 (08:03→20:10)
[2023-04-13] MEDS: LORazepam 2 MG/ML 1ML VIAL IV SCH ×3 (08:37→20:08)
[2023-04-13] MEDS: ENOXAPARIN 40MG/0.4ML SYRINGE (J1650 PER 10MG) SC SCH (08:37)
[2023-04-13] MEDS: POLYVINYL ALCOHOL OPHTH SOLN 15ML (LIQUITEARS) OU SCH ×4 (08:37→20:33)
[2023-04-13] MEDS: LEVOTHYROXINE 100MCG (0.1MG) 5ML SDV PF (SOLUTION FORM) IV SCH (08:41)
[2023-04-13] MEDS: D5W/0.9% SODIUM CHLORIDE 1,000 ML IV SCH (14:28)
[2023-04-13] MEDS: FLUCONAZOLE 200 MG in IV 1 EA IV SCH (17:32)
[2023-04-13] MEDS: PANTOPRAZOLE 40MG VIAL IV SCH (20:33)
[2023-04-14] MEDS: guaiFENesin SYRUP 200MG 10ML UDC PO SCH ×5 (02:47→21:00)
[2023-04-14] MEDS: MEROPENEM INJ 1 GM in IV 1 EA IV SCH ×3 (02:47→17:56)
[2023-04-14 04:18] VITALS: BP 121/64; TEMP 97.7; O2SAT 96
[2023-04-14] MEDS: DOXYCYCLINE HYCLATE 100 MG in D5W MINI-BAG PLUS 100 ML IV SCH ×2 (04:27→14:44)
[2023-04-14] MEDS: D5W/0.9% SODIUM CHLORIDE 1,000 ML IV SCH ×2 (04:27→10:12)
[2023-04-14 06:19] LABS: HEMATOCRIT 26.4 % (36.0-47.0); HEMOGLOBIN 8.4 g/dl (12.0-15.5); MEAN CORPUSCULAR HEMOGLOBIN 31.5 pg (27.0-33.0); MEAN CORPUSCULAR HGB CONC 31.8 g/dl (32.0-36.5); MEAN CORPUSCULAR VOLUME 98.9 fl (80.0-96.0); PLATELET COUNT, AUTOMATED 471 10^3/uL (150-450); RED BLOOD COUNT 2.67 10^6/uL (4.00-5.40); WHITE BLOOD COUNT 12.4 10^3/uL (4.0-10.0)
[2023-04-14 06:23] LABS: ALBUMIN 1.7 G/DL (3.2-5.2); ALKALINE PHOSPHATASE 70 U/L (46-116); ALT/SGPT 11 U/L (7.0-40); AST/SGOT 16 U/L (<34); BILIRUBIN,TOTAL 0.3 MG/DL (0.3-1.2); BLOOD UREA NITROGEN 11 MG/DL (9-23); CALCIUM LEVEL 7.7 MG/DL (8.5-10.1); CARBON DIOXIDE LEVEL 30 MMOL/L (20-31); CHLORIDE LEVEL 109 MMOL/L (98-107); CREATININE FOR GFR 0.25 MG/DL (0.55-1.30); GLOMERULAR FILTRATION RATE > 60.0 (>51); GLUCOSE, FASTING 90 MG/DL (60-100); MAGNESIUM LEVEL 1.5 MG/DL (1.8-2.4); POTASSIUM SERUM 3.4 MMOL/L (3.5-5.1); SODIUM LEVEL 145 MMOL/L (136-145); TOTAL PROTEIN 5.5 G/DL (5.7-8.2)
[2023-04-14] MEDS: SODIUM CHLORIDE HYPERTONIC 3% 15ML NEB SOL INH SCH ×4 (07:25→20:35)
[2023-04-14] MEDS: LEVALBUTEROL 1.25MG 0.5ML CONCENTRATE NEB NEB SCH ×4 (07:25→20:35)
[2023-04-14 08:00] VITALS: BP 136/66; TEMP 96.7; O2SAT 98
[2023-04-14] MEDS: SENOKOT S TAB PO SCH ×2 (09:00→21:00)
[2023-04-14] MEDS: DOCUSATE SODIUM 100MG CAPSULE PO SCH ×2 (09:00→21:00)
[2023-04-14] MEDS: LACTOBACILLUS ACIDOPHILUS CAP (BACID) PO SCH ×3 (09:00→21:00)
[2023-04-14] MEDS ORDERED: NS 500 ML IV ONE (09:35)
[2023-04-14] MEDS: POLYVINYL ALCOHOL OPHTH SOLN 15ML (LIQUITEARS) OU SCH ×4 (09:53→21:00)
[2023-04-14] MEDS: ENOXAPARIN 40MG/0.4ML SYRINGE (J1650 PER 10MG) SC SCH (09:54)
[2023-04-14] MEDS: LORazepam 2 MG/ML 1ML VIAL IV SCH ×3 (09:54→21:00)
[2023-04-14] MEDS: LEVOTHYROXINE 100MCG (0.1MG) 5ML SDV PF (SOLUTION FORM) IV SCH (09:55)
[2023-04-14 12:00] VITALS: BP 123/64; TEMP 97.6; O2SAT 90
[2023-04-14] MEDS ORDERED: MAG SULF 1GM/100ML (MAG RUN) 1 GM in IV 1 EA IV ONE (12:15)
[2023-04-14] MEDS: METOPROLOL 5 MG/5 ML VIAL IV SCH (14:45)
[2023-04-14 16:00] VITALS: BP 121/70; TEMP 96.2; O2SAT 100
[2023-04-14 20:15] VITALS: BP 119/56; TEMP 96; O2SAT 96
[2023-04-14] MEDS: PANTOPRAZOLE 40MG VIAL IV SCH (21:00)
[2023-04-15] VITALS (8 sets, daily range): BP systolic 109–132; BP diastolic 56–68; TEMP 96.3–98.4; O2SAT 93–96
[2023-04-15] MEDS: guaiFENesin SYRUP 200MG 10ML UDC PO SCH ×6 (01:00→20:10)
[2023-04-15] MEDS: MEROPENEM INJ 1 GM in IV 1 EA IV SCH ×3 (02:46→17:32)
[2023-04-15] MEDS: DOXYCYCLINE HYCLATE 100 MG in D5W MINI-BAG PLUS 100 ML IV SCH ×2 (03:00→15:19)
[2023-04-15] MEDS: LEVALBUTEROL 1.25MG 0.5ML CONCENTRATE NEB NEB SCH ×4 (08:36→19:18)
[2023-04-15] MEDS: SODIUM CHLORIDE HYPERTONIC 3% 15ML NEB SOL INH SCH ×4 (08:36→19:18)
[2023-04-15] MEDS: LACTOBACILLUS ACIDOPHILUS CAP (BACID) PO SCH ×3 (09:00→20:10)
[2023-04-15] MEDS: POLYVINYL ALCOHOL OPHTH SOLN 15ML (LIQUITEARS) OU SCH ×4 (09:00→21:44)
[2023-04-15] MEDS: SENOKOT S TAB PO SCH ×2 (09:00→20:10)
[2023-04-15] MEDS: DOCUSATE SODIUM 100MG CAPSULE PO SCH ×2 (09:00→20:10)
[2023-04-15] MEDS: METOPROLOL 5 MG/5 ML VIAL IV SCH (10:10)
[2023-04-15] MEDS: LORazepam 2 MG/ML 1ML VIAL IV SCH ×3 (10:11→21:43)
[2023-04-15] MEDS: ENOXAPARIN 40MG/0.4ML SYRINGE (J1650 PER 10MG) SC SCH (10:11)
[2023-04-15] MEDS: LEVOTHYROXINE 100MCG (0.1MG) 5ML SDV PF (SOLUTION FORM) IV SCH (11:07)
[2023-04-15] MEDS: D5W/0.9% SODIUM CHLORIDE 1,000 ML IV SCH (15:20)
[2023-04-15] MEDS: PANTOPRAZOLE 40MG VIAL IV SCH (21:43)
[2023-04-16] VITALS (9 sets, daily range): BP systolic 111–125; BP diastolic 56–87; TEMP 97.6–99.4; O2SAT 93–100
[2023-04-16] MEDS: guaiFENesin SYRUP 200MG 10ML UDC PO SCH ×6 (01:00→20:40)
[2023-04-16] MEDS: MEROPENEM INJ 1 GM in IV 1 EA IV SCH (01:03)
[2023-04-16] MEDS: D5W/0.9% SODIUM CHLORIDE 1,000 ML IV SCH (02:16)
[2023-04-16] MEDS: DOXYCYCLINE HYCLATE 100 MG in D5W MINI-BAG PLUS 100 ML IV SCH (02:16)
[2023-04-16 04:50] LABS: BASO % 0.1 % (0.0-1.0); EOS # 0.1 10^3/uL (0.0-0.5); EOS % 1.3 % (0.0-3.0); HEMATOCRIT 25.8 % (36.0-47.0); HEMOGLOBIN 8.4 g/dl (12.0-15.5); LYMPH # 1.7 10^3/uL (1.5-5.0); MEAN CORPUSCULAR HEMOGLOBIN 31.1 pg (27.0-33.0); MEAN CORPUSCULAR HGB CONC 32.6 g/dl (32.0-36.5); MEAN CORPUSCULAR VOLUME 95.6 fl (80.0-96.0); MONO # 0.6 10^3/uL (0.0-0.8); MONO % 6.9 % (2.0-8.0); NEUTROPHILS # 5.7 10^3/uL (1.5-8.5); NEUTROPHILS % 70.5 % (36.0-66.0); PLATELET COUNT, AUTOMATED 461 10^3/uL (150-450); WHITE BLOOD COUNT 8.2 10^3/uL (4.0-10.0)
[2023-04-16 05:26] LABS: BLOOD UREA NITROGEN 6 MG/DL (9-23); CALCIUM LEVEL 7.6 MG/DL (8.5-10.1); CARBON DIOXIDE LEVEL 31 MMOL/L (20-31); CHLORIDE LEVEL 106 MMOL/L (98-107); GLOMERULAR FILTRATION RATE > 60.0 (>51); GLUCOSE, FASTING 113 MG/DL (60-100); POTASSIUM SERUM 3.1 MMOL/L (3.5-5.1); SODIUM LEVEL 143 MMOL/L (136-145)
[2023-04-16 06:26] LABS: MAGNESIUM LEVEL 1.4 MG/DL (1.8-2.4)
[2023-04-16] MEDS ORDERED: KCL 10MEQ/100ML SWI (KRUN) 10 MEQ in IV 1 EA IV ONE (07:25)
[2023-04-16] MEDS: MAG SULF 1GM/100ML (MAG RUN) 1 GM in IV 1 EA IV SCH ×3 (07:54→11:08)
[2023-04-16] MEDS ORDERED: KCL 40MEQ IN D5/NS 1000ML 1,000 ML IV ONE (08:00)
[2023-04-16] MEDS: LEVALBUTEROL 1.25MG 0.5ML CONCENTRATE NEB NEB SCH ×4 (08:23→20:11)
[2023-04-16] MEDS: SODIUM CHLORIDE HYPERTONIC 3% 15ML NEB SOL INH SCH ×4 (08:24→20:11)
[2023-04-16] MEDS: SENOKOT S TAB PO SCH ×2 (09:00→20:40)
[2023-04-16] MEDS: DOCUSATE SODIUM 100MG CAPSULE PO SCH ×2 (09:00→20:40)
[2023-04-16] MEDS: LACTOBACILLUS ACIDOPHILUS CAP (BACID) PO SCH ×3 (09:00→20:39)
[2023-04-16] MEDS: LEVOTHYROXINE 100MCG (0.1MG) 5ML SDV PF (SOLUTION FORM) IV SCH (09:34)
[2023-04-16] MEDS: ENOXAPARIN 40MG/0.4ML SYRINGE (J1650 PER 10MG) SC SCH (09:34)
[2023-04-16] MEDS: METOPROLOL 5 MG/5 ML VIAL IV SCH (09:37)
[2023-04-16] MEDS: LORazepam 2 MG/ML 1ML VIAL IV SCH ×3 (09:37→20:41)
[2023-04-16] MEDS: POLYVINYL ALCOHOL OPHTH SOLN 15ML (LIQUITEARS) OU SCH ×4 (09:38→20:41)
[2023-04-16] MEDS: PANTOPRAZOLE 40MG VIAL IV SCH (20:41)
[2023-04-17] MEDS: guaiFENesin SYRUP 200MG 10ML UDC PO SCH ×6 (01:00→20:06)
[2023-04-17 03:43] VITALS: BP 130/71; TEMP 98.4; O2SAT 95
[2023-04-17 05:51] LABS: BASO % 0.1 % (0.0-1.0); EOS # 0.1 10^3/uL (0.0-0.5); EOS % 0.7 % (0.0-3.0); HEMATOCRIT 25.5 % (36.0-47.0); HEMOGLOBIN 8.2 g/dl (12.0-15.5); LYMPH # 1.1 10^3/uL (1.5-5.0); LYMPH % 11.4 % (24.0-44.0); MEAN CORPUSCULAR HEMOGLOBIN 31.3 pg (27.0-33.0); MEAN CORPUSCULAR HGB CONC 32.2 g/dl (32.0-36.5); MEAN CORPUSCULAR VOLUME 97.3 fl (80.0-96.0); MONO # 0.5 10^3/uL (0.0-0.8); MONO % 5.3 % (2.0-8.0); NEUTROPHILS # 8.1 10^3/uL (1.5-8.5); NEUTROPHILS % 81.9 % (36.0-66.0); PLATELET COUNT, AUTOMATED 460 10^3/uL (150-450); RED BLOOD COUNT 2.62 10^6/uL (4.00-5.40); WHITE BLOOD COUNT 9.9 10^3/uL (4.0-10.0)
[2023-04-17 06:10] LABS: BLOOD UREA NITROGEN < 5 MG/DL (9-23); CALCIUM LEVEL 7.8 MG/DL (8.5-10.1); CARBON DIOXIDE LEVEL 33 MMOL/L (20-31); CHLORIDE LEVEL 105 MMOL/L (98-107); CREATININE FOR GFR 0.22 MG/DL (0.55-1.30); GLOMERULAR FILTRATION RATE > 60.0 (>51); GLUCOSE, FASTING 90 MG/DL (60-100); MAGNESIUM LEVEL 1.6 MG/DL (1.8-2.4); POTASSIUM SERUM 3.3 MMOL/L (3.5-5.1); SODIUM LEVEL 145 MMOL/L (136-145)
[2023-04-17] MEDS: SODIUM CHLORIDE HYPERTONIC 3% 15ML NEB SOL INH SCH (07:23)
[2023-04-17] MEDS: LEVALBUTEROL 1.25MG 0.5ML CONCENTRATE NEB NEB SCH ×4 (07:23→19:57)
[2023-04-17] MEDS ORDERED: SODIUM CHLORIDE HYPERTONIC 3% 4ML NEB SOL INH SCH (07:58)
[2023-04-17 08:00] VITALS: BP 136/81; TEMP 97; O2SAT 98
[2023-04-17] MEDS: DOCUSATE SODIUM 100MG CAPSULE PO SCH ×2 (09:00→20:06)
[2023-04-17] MEDS: LACTOBACILLUS ACIDOPHILUS CAP (BACID) PO SCH ×3 (09:00→20:06)
[2023-04-17] MEDS: SENOKOT S TAB PO SCH ×2 (09:00→20:07)
[2023-04-17] MEDS: LORazepam 2 MG/ML 1ML VIAL IV SCH ×3 (09:23→20:43)
[2023-04-17] MEDS: METOPROLOL 5 MG/5 ML VIAL IV SCH (09:24)
[2023-04-17] MEDS: ENOXAPARIN 40MG/0.4ML SYRINGE (J1650 PER 10MG) SC SCH (09:24)
[2023-04-17] MEDS: LEVOTHYROXINE 100MCG (0.1MG) 5ML SDV PF (SOLUTION FORM) IV SCH (09:24)
[2023-04-17] MEDS: POLYVINYL ALCOHOL OPHTH SOLN 15ML (LIQUITEARS) OU SCH ×4 (09:24→20:44)
[2023-04-17] MEDS: SODIUM CHLORIDE HYPERTONIC 3% 4ML NEB SOL INH SCH ×3 (11:39→19:57)
[2023-04-17 12:00] VITALS: BP 149/97; TEMP 97.6; O2SAT 97
[2023-04-17] MEDS ORDERED: SODIUM CHLORIDE 0.9% INJ 10 ML SYR IV PRN (15:45)
[2023-04-17 16:00] VITALS: BP 134/80; TEMP 97; O2SAT 96
[2023-04-17] MEDS ORDERED: LORazepam 2 MG/ML 1ML VIAL IV STA (16:25)
[2023-04-17] MEDS: D5W/0.9% SODIUM CHLORIDE 1,000 ML IV SCH (16:40)
[2023-04-17 17:24] LABS: ALBUMIN 1.6 G/DL (3.2-5.2); ALKALINE PHOSPHATASE 63 U/L (46-116); ALT/SGPT < 9 U/L (7.0-40); AST/SGOT 15 U/L (<34); BILIRUBIN,TOTAL 0.2 MG/DL (0.3-1.2); PHOSPHORUS LEVEL 2.8 MG/DL (2.5-4.9); TOTAL PROTEIN 5.1 G/DL (5.7-8.2)
[2023-04-17] MEDS: SODIUM CHLORIDE 0.9% INJ 10 ML SYR IV SCH (18:00)
[2023-04-17 20:00] VITALS: BP 116/64; TEMP 97.3; O2SAT 96
[2023-04-17] MEDS: PANTOPRAZOLE 40MG VIAL IV SCH (20:43)
[2023-04-18] VITALS: BP 110/59; TEMP 97.4; O2SAT 98
[2023-04-18] MEDS: guaiFENesin SYRUP 200MG 10ML UDC PO SCH ×7 (01:00→23:57)
[2023-04-18 04:00] VITALS: BP 120/66; TEMP 97.8; O2SAT 95
[2023-04-18 06:08] LABS: BASO % 0.1 % (0.0-1.0); EOS # 0.1 10^3/uL (0.0-0.5); EOS % 1.2 % (0.0-3.0); HEMATOCRIT 25.3 % (36.0-47.0); LYMPH # 1.3 10^3/uL (1.5-5.0); LYMPH % 15.3 % (24.0-44.0); MEAN CORPUSCULAR HEMOGLOBIN 30.9 pg (27.0-33.0); MEAN CORPUSCULAR HGB CONC 31.6 g/dl (32.0-36.5); MEAN CORPUSCULAR VOLUME 97.7 fl (80.0-96.0); MONO # 0.6 10^3/uL (0.0-0.8); MONO % 7.3 % (2.0-8.0); NEUTROPHILS # 6.4 10^3/uL (1.5-8.5); NEUTROPHILS % 75.9 % (36.0-66.0); PLATELET COUNT, AUTOMATED 411 10^3/uL (150-450); RED BLOOD COUNT 2.59 10^6/uL (4.00-5.40); WHITE BLOOD COUNT 8.5 10^3/uL (4.0-10.0)
[2023-04-18] MEDS: D5W/0.9% SODIUM CHLORIDE 1,000 ML IV SCH (06:27)
[2023-04-18] MEDS: SODIUM CHLORIDE 0.9% INJ 10 ML SYR IV SCH ×2 (06:27→17:40)
[2023-04-18 06:35] LABS: BLOOD UREA NITROGEN 5 MG/DL (9-23); CALCIUM LEVEL 7.8 MG/DL (8.5-10.1); CARBON DIOXIDE LEVEL 34 MMOL/L (20-31); CHLORIDE LEVEL 109 MMOL/L (98-107); GLOMERULAR FILTRATION RATE > 60.0 (>51); GLUCOSE, FASTING 124 MG/DL (60-100); MAGNESIUM LEVEL 1.4 MG/DL (1.8-2.4); POTASSIUM SERUM 3.4 MMOL/L (3.5-5.1); SODIUM LEVEL 147 MMOL/L (136-145)
[2023-04-18] MEDS ORDERED: MAG SULF 1GM/100ML (MAG RUN) 1 GM in IV 1 EA IV ONE (07:00)
[2023-04-18 07:36] VITALS: BP 139/73; TEMP 96.1; O2SAT 34
[2023-04-18] MEDS: SODIUM CHLORIDE HYPERTONIC 3% 4ML NEB SOL INH SCH ×4 (07:59→19:24)
[2023-04-18] MEDS: LEVALBUTEROL 1.25MG 0.5ML CONCENTRATE NEB NEB SCH ×4 (07:59→19:24)
[2023-04-18] MEDS: DOCUSATE SODIUM 100MG CAPSULE PO SCH ×2 (08:14→20:45)
[2023-04-18] MEDS: SENOKOT S TAB PO SCH ×2 (08:14→20:45)
[2023-04-18] MEDS: LACTOBACILLUS ACIDOPHILUS CAP (BACID) PO SCH ×3 (08:14→20:45)
[2023-04-18] MEDS: POLYVINYL ALCOHOL OPHTH SOLN 15ML (LIQUITEARS) OU SCH ×4 (09:12→20:43)
[2023-04-18] MEDS: ENOXAPARIN 40MG/0.4ML SYRINGE (J1650 PER 10MG) SC SCH (09:13)
[2023-04-18] MEDS: METOPROLOL 5 MG/5 ML VIAL IV SCH (09:13)
[2023-04-18] MEDS: LORazepam 2 MG/ML 1ML VIAL IV SCH ×3 (09:13→20:42)
[2023-04-18] MEDS: LEVOTHYROXINE 100MCG (0.1MG) 5ML SDV PF (SOLUTION FORM) IV SCH (09:21)
[2023-04-18 12:00] VITALS: BP 120/64; TEMP 96.4; O2SAT 94
[2023-04-18 14:01] LABS: BLOOD UREA NITROGEN < 5 MG/DL (9-23); CALCIUM LEVEL 7.6 MG/DL (8.5-10.1); CARBON DIOXIDE LEVEL 30 MMOL/L (20-31); CHLORIDE LEVEL 104 MMOL/L (98-107); CREATININE FOR GFR 0.17 MG/DL (0.55-1.30); GLOMERULAR FILTRATION RATE > 60.0 (>51); GLUCOSE, FASTING 122 MG/DL (60-100); POTASSIUM SERUM 3.3 MMOL/L (3.5-5.1); SODIUM LEVEL 143 MMOL/L (136-145)
[2023-04-18] MEDS: NS 1,000 ML IV SCH (17:38)
[2023-04-18] MEDS: INSULIN LISPRO (NovoLOG) PER UNIT SC SCH ×2 (17:39→23:56)
[2023-04-18] MEDS ORDERED: [UNRECOGNIZED DRUG - OTHER] IV SCH ×4 (18:00)
[2023-04-18] MEDS ORDERED: THIAMINE IV SCH ×4 (18:00)
[2023-04-18] MEDS ORDERED: MULTIVITAMIN ADULT IV SCH ×4 (18:00)
[2023-04-18 19:50] VITALS: BP 142/79; TEMP 98.6; O2SAT 92
[2023-04-18] MEDS: PANTOPRAZOLE 40MG VIAL IV SCH (20:43)
[2023-04-18 23:59] VITALS: BP 135/70; TEMP 98.8; O2SAT 93
[2023-04-19 03:51] VITALS: BP 137/80; TEMP 99.2; O2SAT 93
[2023-04-19] MEDS: SODIUM CHLORIDE 0.9% INJ 10 ML SYR IV SCH ×2 (05:00→17:15)
[2023-04-19] MEDS: guaiFENesin SYRUP 200MG 10ML UDC PO SCH ×5 (05:00→20:36)
[2023-04-19] MEDS: INSULIN LISPRO (NovoLOG) PER UNIT SC SCH ×3 (05:55→17:13)
[2023-04-19 07:00] LABS: BASO % 0.3 % (0.0-1.0); EOS # 0.2 10^3/uL (0.0-0.5); EOS % 1.7 % (0.0-3.0); HEMATOCRIT 28.3 % (36.0-47.0); HEMOGLOBIN 9.2 g/dl (12.0-15.5); LYMPH # 1.7 10^3/uL (1.5-5.0); LYMPH % 19.7 % (24.0-44.0); MEAN CORPUSCULAR HEMOGLOBIN 31.1 pg (27.0-33.0); MEAN CORPUSCULAR HGB CONC 32.5 g/dl (32.0-36.5); MEAN CORPUSCULAR VOLUME 95.6 fl (80.0-96.0); MONO # 0.6 10^3/uL (0.0-0.8); MONO % 6.5 % (2.0-8.0); NEUTROPHILS # 6.2 10^3/uL (1.5-8.5); NEUTROPHILS % 71.5 % (36.0-66.0); PLATELET COUNT, AUTOMATED 473 10^3/uL (150-450); RED BLOOD COUNT 2.96 10^6/uL (4.00-5.40); WHITE BLOOD COUNT 8.7 10^3/uL (4.0-10.0)
[2023-04-19] MEDS ORDERED: KCL 10MEQ/100ML SWI (KRUN) 10 MEQ in IV 1 EA IV SCH (07:00)
[2023-04-19] MEDS ORDERED: METOPROLOL 5 MG/5 ML VIAL IV STA (07:14)
[2023-04-19 07:15] VITALS: BP 138/100; TEMP 96.4; O2SAT 95
[2023-04-19 07:26] VITALS: BP 128/98
[2023-04-19 07:44] LABS: BLOOD UREA NITROGEN < 5 MG/DL (9-23); CALCIUM LEVEL 7.7 MG/DL (8.5-10.1); CARBON DIOXIDE LEVEL 32 MMOL/L (20-31); CHLORIDE LEVEL 102 MMOL/L (98-107); CREATININE FOR GFR 0.18 MG/DL (0.55-1.30); GLOMERULAR FILTRATION RATE > 60.0 (>51); GLUCOSE, FASTING 123 MG/DL (60-100); MAGNESIUM LEVEL 1.8 MG/DL (1.8-2.4); PHOSPHORUS LEVEL 2.9 MG/DL (2.5-4.9); POTASSIUM SERUM 3.4 MMOL/L (3.5-5.1); SODIUM LEVEL 140 MMOL/L (136-145)
[2023-04-19] MEDS: LEVALBUTEROL 1.25MG 0.5ML CONCENTRATE NEB NEB SCH ×4 (08:17→19:36)
[2023-04-19] MEDS: SODIUM CHLORIDE HYPERTONIC 3% 4ML NEB SOL INH SCH ×4 (08:17→19:36)
[2023-04-19] MEDS: LORazepam 2 MG/ML 1ML VIAL IV SCH ×3 (08:20→21:22)
[2023-04-19] MEDS: LEVOTHYROXINE 100MCG (0.1MG) 5ML SDV PF (SOLUTION FORM) IV SCH (08:20)
[2023-04-19] MEDS: METOPROLOL 5 MG/5 ML VIAL IV SCH ×3 (08:21→17:13)
[2023-04-19] MEDS: POLYVINYL ALCOHOL OPHTH SOLN 15ML (LIQUITEARS) OU SCH ×4 (08:22→21:22)
[2023-04-19] MEDS: ENOXAPARIN 40MG/0.4ML SYRINGE (J1650 PER 10MG) SC SCH (08:26)
[2023-04-19] MEDS: DOCUSATE SODIUM 100MG CAPSULE PO SCH ×2 (08:59→20:36)
[2023-04-19] MEDS: LACTOBACILLUS ACIDOPHILUS CAP (BACID) PO SCH ×3 (08:59→20:36)
[2023-04-19] MEDS ORDERED: POTASSIUM PHOSPHATE INJ 30 MMOL in D5W 500 ML IV ONE (09:00)
[2023-04-19] MEDS: SENOKOT S TAB PO SCH ×2 (09:00→20:37)
[2023-04-19 09:55] VITALS: BP 125/85
[2023-04-19 16:00] VITALS: BP 112/60; TEMP 96.8; O2SAT 95
[2023-04-19] MEDS: NS 1,000 ML IV SCH (17:12)
[2023-04-19] MEDS ORDERED: [UNRECOGNIZED DRUG - OTHER] IV SCH ×4 (18:00)
[2023-04-19] MEDS ORDERED: MULTIVITAMIN ADULT IV SCH ×4 (18:00)
[2023-04-19] MEDS ORDERED: THIAMINE IV SCH ×4 (18:00)
[2023-04-19 18:23] LABS: BLOOD UREA NITROGEN 7 MG/DL (9-23); CALCIUM LEVEL 7.8 MG/DL (8.5-10.1); CARBON DIOXIDE LEVEL 28 MMOL/L (20-31); CHLORIDE LEVEL 104 MMOL/L (98-107); CREATININE FOR GFR 0.22 MG/DL (0.55-1.30); GLOMERULAR FILTRATION RATE > 60.0 (>51); GLUCOSE, FASTING 114 MG/DL (60-100); POTASSIUM SERUM 3.6 MMOL/L (3.5-5.1); SODIUM LEVEL 140 MMOL/L (136-145)
[2023-04-19 19:53] VITALS: BP 125/75; TEMP 97.7; O2SAT 95
[2023-04-19] MEDS: PANTOPRAZOLE 40MG VIAL IV SCH (21:22)
[2023-04-20] VITALS (11 sets, daily range): BP systolic 97–134; BP diastolic 51–84; TEMP 97.3–98.3; O2SAT 94–97
[2023-04-20] MEDS: guaiFENesin SYRUP 200MG 10ML UDC PO SCH ×6 (00:02→20:00)
[2023-04-20] MEDS: METOPROLOL 5 MG/5 ML VIAL IV SCH ×3 (00:29→17:00)
[2023-04-20 05:18] LABS: BASO % 0.3 % (0.0-1.0); EOS # 0.1 10^3/uL (0.0-0.5); EOS % 1.7 % (0.0-3.0); HEMATOCRIT 27.6 % (36.0-47.0); LYMPH # 1.9 10^3/uL (1.5-5.0); LYMPH % 25.6 % (24.0-44.0); MEAN CORPUSCULAR HGB CONC 32.6 g/dl (32.0-36.5); MEAN CORPUSCULAR VOLUME 95.2 fl (80.0-96.0); MONO # 0.5 10^3/uL (0.0-0.8); MONO % 6.8 % (2.0-8.0); NEUTROPHILS % 65.5 % (36.0-66.0); PLATELET COUNT, AUTOMATED 462 10^3/uL (150-450); WHITE BLOOD COUNT 7.6 10^3/uL (4.0-10.0)
[2023-04-20 05:45] LABS: BLOOD UREA NITROGEN 7 MG/DL (9-23); CARBON DIOXIDE LEVEL 27 MMOL/L (20-31); CHLORIDE LEVEL 103 MMOL/L (98-107); CREATININE FOR GFR 0.22 MG/DL (0.55-1.30); GLOMERULAR FILTRATION RATE > 60.0 (>51); GLUCOSE, FASTING 109 MG/DL (60-100); MAGNESIUM LEVEL 1.8 MG/DL (1.8-2.4); PHOSPHORUS LEVEL 3.5 MG/DL (2.5-4.9); POTASSIUM SERUM 3.7 MMOL/L (3.5-5.1); SODIUM LEVEL 139 MMOL/L (136-145)
[2023-04-20] MEDS: SODIUM CHLORIDE 0.9% INJ 10 ML SYR IV SCH ×2 (06:00→18:00)
[2023-04-20] MEDS: INSULIN LISPRO (NovoLOG) PER UNIT SC SCH ×3 (06:00→12:00)
[2023-04-20] MEDS: NS 1,000 ML IV SCH (07:30)
[2023-04-20] MEDS: HALOPERIDOL 5MG/ML 1ML VIAL IV PRN ×2 (07:37→11:39)
[2023-04-20] MEDS ORDERED: OLANZapine INTRAMUSCULAR 10MG VIAL IM STA (07:45)
[2023-04-20] MEDS: SODIUM CHLORIDE HYPERTONIC 3% 4ML NEB SOL INH SCH ×4 (08:00→20:00)
[2023-04-20] MEDS: LEVALBUTEROL 1.25MG 0.5ML CONCENTRATE NEB NEB SCH ×4 (08:00→20:00)
[2023-04-20] MEDS: DOCUSATE SODIUM 100MG CAPSULE PO SCH ×2 (08:06→20:00)
[2023-04-20] MEDS: LACTOBACILLUS ACIDOPHILUS CAP (BACID) PO SCH ×3 (08:06→20:00)
[2023-04-20] MEDS: SENOKOT S TAB PO SCH ×2 (08:07→20:00)
[2023-04-20] MEDS: POLYVINYL ALCOHOL OPHTH SOLN 15ML (LIQUITEARS) OU SCH ×4 (09:00→21:35)
[2023-04-20] MEDS: LEVOTHYROXINE 100MCG (0.1MG) 5ML SDV PF (SOLUTION FORM) IV SCH (11:01)
[2023-04-20] MEDS: ENOXAPARIN 40MG/0.4ML SYRINGE (J1650 PER 10MG) SC SCH (11:01)
[2023-04-20] MEDS: LORazepam 2 MG/ML 1ML VIAL IV SCH ×3 (11:02→21:35)
[2023-04-20] MEDS ORDERED: GLUCOSE 4GM CHEW TABLET PO PRN (17:30)
[2023-04-20] MEDS ORDERED: DEXTROSE 50% 50ML SYRINGE IV PRN (17:30)
[2023-04-20] MEDS ORDERED: GLUCAGON INJ 1MG VIAL SC PRN (17:30)
[2023-04-20] MEDS: OLANZapine INTRAMUSCULAR 10MG VIAL IM SCH (21:34)
[2023-04-20] MEDS: PANTOPRAZOLE 40MG VIAL IV SCH (21:34)
[2023-04-21] VITALS (11 sets, daily range): BP systolic 72–131; BP diastolic 40–81; TEMP 98–99.7; O2SAT 95–99
[2023-04-21] MEDS: guaiFENesin SYRUP 200MG 10ML UDC PO SCH ×5 (00:47→17:12)
[2023-04-21] MEDS: METOPROLOL 5 MG/5 ML VIAL IV SCH ×2 (01:42→09:00)
[2023-04-21] MEDS: SODIUM CHLORIDE 0.9% INJ 10 ML SYR IV SCH ×2 (03:08→17:12)
[2023-04-21] MEDS: NS 1,000 ML IV SCH (03:31)
[2023-04-21] MEDS: SODIUM CHLORIDE HYPERTONIC 3% 4ML NEB SOL INH SCH ×4 (07:45→19:12)
[2023-04-21] MEDS: LEVALBUTEROL 1.25MG 0.5ML CONCENTRATE NEB NEB SCH ×4 (07:45→19:12)
[2023-04-21 07:49] LABS: BASO % 0.6 % (0.0-1.0); EOS # 0.2 10^3/uL (0.0-0.5); EOS % 2.3 % (0.0-3.0); HEMOGLOBIN 8.9 g/dl (12.0-15.5); LYMPH # 1.8 10^3/uL (1.5-5.0); MEAN CORPUSCULAR HEMOGLOBIN 31.6 pg (27.0-33.0); MEAN CORPUSCULAR VOLUME 95.7 fl (80.0-96.0); MONO # 0.5 10^3/uL (0.0-0.8); NEUTROPHILS # 4.6 10^3/uL (1.5-8.5); PLATELET COUNT, AUTOMATED 425 10^3/uL (150-450); RED BLOOD COUNT 2.82 10^6/uL (4.00-5.40)
[2023-04-21 08:22] LABS: BLOOD UREA NITROGEN 9 MG/DL (9-23); CALCIUM LEVEL 8.3 MG/DL (8.5-10.1); CARBON DIOXIDE LEVEL 25 MMOL/L (20-31); CHLORIDE LEVEL 107 MMOL/L (98-107); CREATININE FOR GFR 0.27 MG/DL (0.55-1.30); GLOMERULAR FILTRATION RATE > 60.0 (>51); GLUCOSE, FASTING 75 MG/DL (60-100); MAGNESIUM LEVEL 1.5 MG/DL (1.8-2.4); POTASSIUM SERUM 3.8 MMOL/L (3.5-5.1); SODIUM LEVEL 144 MMOL/L (136-145)
[2023-04-21] MEDS: LACTOBACILLUS ACIDOPHILUS CAP (BACID) PO SCH (08:33)
[2023-04-21] MEDS: SENOKOT S TAB PO SCH (08:34)
[2023-04-21] MEDS: DOCUSATE SODIUM 100MG CAPSULE PO SCH (08:34)
[2023-04-21] MEDS: ENOXAPARIN 40MG/0.4ML SYRINGE (J1650 PER 10MG) SC SCH (08:55)
[2023-04-21] MEDS: LORazepam 2 MG/ML 1ML VIAL IV SCH (09:00)
[2023-04-21] MEDS: POLYVINYL ALCOHOL OPHTH SOLN 15ML (LIQUITEARS) OU SCH ×4 (09:00→21:00)
[2023-04-21] MEDS: LEVOTHYROXINE 100MCG (0.1MG) 5ML SDV PF (SOLUTION FORM) IV SCH (09:00)
[2023-04-21] MEDS: OLANZapine INTRAMUSCULAR 10MG VIAL IM SCH (09:41)
[2023-04-21] MEDS ORDERED: MAG SULF 1GM/100ML (MAG RUN) 1 GM in IV 1 EA IV SCH (10:00)
[2023-04-21] MEDS: SERTRALINE 100 MG TAB PO SCH (12:36)
[2023-04-21] MEDS: MAGNESIUM OXIDE 400MG TAB (MAG-OX) PO SCH ×2 (12:36→22:52)
[2023-04-21] MEDS: clonazePAM 1 MG TAB PO SCH ×3 (12:36→22:51)
[2023-04-21] MEDS: LEVOTHYROXINE 88MCG TABLET (0.088 MG) PO SCH (12:37)
[2023-04-21] MEDS: buPROPion 75 MG TAB PO SCH ×2 (12:37→22:51)
[2023-04-21] MEDS: risperiDONE 1 MG TAB PO SCH (12:37)
[2023-04-21] MEDS ORDERED: E-Z-PAQUE 96% w/w SUSP 176GM BTL As Ordered ONE (15:21)
[2023-04-21] MEDS ORDERED: VARIBAR NECTAR 40% w/v 240ML SUSP BTL As Ordered ONE (15:21)
[2023-04-21] MEDS ORDERED: VARIBAR PUDDING 40% w/v 230ML TUBE As Ordered ONE (15:21)
[2023-04-21] MEDS ORDERED: BARIUM SULFATE 700 MG TABLET (E-Z-DISK) As Ordered ONE (15:22)
[2023-04-21] MEDS: METOPROLOL TART 12.5 MG PER 1/2 TAB PO SCH ×2 (17:11→20:56)
[2023-04-21] MEDS ORDERED: NS 500 ML IV ONE ×2 (20:25→21:20)
[2023-04-21] MEDS ORDERED: risperiDONE 2 MG TAB PO SCH (21:00)
[2023-04-21] MEDS ORDERED: traZODone 25MG PER 1/2 TABLET PO SCH (21:00)
[2023-04-21] MEDS ORDERED: PRAZOSIN 1 MG CAP PO SCH (21:00)
[2023-04-21] MEDS ORDERED: traZODone 100 MG TAB PO PRN (21:00)
[2023-04-21] MEDS ORDERED: traZODone 100 MG TAB PO SCH (21:00)
[2023-04-21] MEDS ORDERED: traZODone 25MG PER 1/2 TABLET PO PRN (21:00)
[2023-04-21] MEDS ORDERED: NS 1,000 ML IV ONE (22:10)
[2023-04-21] MEDS ORDERED: NS 1,000 ML IV SCH (23:20)
[2023-04-22] VITALS (13 sets, daily range): BP systolic 80–109; BP diastolic 40–62; TEMP 98.2–99; O2SAT 95–99
[2023-04-22] MEDS: LEVALBUTEROL 1.25MG 0.5ML CONCENTRATE NEB INH SCH ×4 (01:19→20:39)
[2023-04-22 05:45] LABS: BASO % 0.6 % (0.0-1.0); EOS # 0.2 10^3/uL (0.0-0.5); EOS % 3.1 % (0.0-3.0); HEMOGLOBIN 7.7 g/dl (12.0-15.5); LYMPH # 2.1 10^3/uL (1.5-5.0); LYMPH % 30.5 % (24.0-44.0); MEAN CORPUSCULAR HEMOGLOBIN 31.6 pg (27.0-33.0); MEAN CORPUSCULAR HGB CONC 32.1 g/dl (32.0-36.5); MEAN CORPUSCULAR VOLUME 98.4 fl (80.0-96.0); MONO # 0.4 10^3/uL (0.0-0.8); MONO % 6.3 % (2.0-8.0); NEUTROPHILS % 59.4 % (36.0-66.0); PLATELET COUNT, AUTOMATED 372 10^3/uL (150-450); RED BLOOD COUNT 2.44 10^6/uL (4.00-5.40); WHITE BLOOD COUNT 6.7 10^3/uL (4.0-10.0)
[2023-04-22] MEDS: SODIUM CHLORIDE 0.9% INJ 10 ML SYR IV SCH (05:45)
[2023-04-22] MEDS: LEVOTHYROXINE 88MCG TABLET (0.088 MG) PO SCH (05:51)
[2023-04-22 06:08] LABS: BLOOD UREA NITROGEN 10 MG/DL (9-23); CALCIUM LEVEL 7.1 MG/DL (8.5-10.1); CARBON DIOXIDE LEVEL 27 MMOL/L (20-31); CHLORIDE LEVEL 112 MMOL/L (98-107); CREATININE FOR GFR 0.28 MG/DL (0.55-1.30); GLOMERULAR FILTRATION RATE > 60.0 (>51); GLUCOSE, FASTING 92 MG/DL (60-100); MAGNESIUM LEVEL 1.6 MG/DL (1.8-2.4); POTASSIUM SERUM 3.4 MMOL/L (3.5-5.1); SODIUM LEVEL 145 MMOL/L (136-145)
[2023-04-22] MEDS: SODIUM CHLORIDE HYPERTONIC 3% 4ML NEB SOL INH SCH ×3 (08:06→20:40)
[2023-04-22] MEDS: SERTRALINE 100 MG TAB PO SCH (08:32)
[2023-04-22] MEDS: buPROPion 75 MG TAB PO SCH ×2 (08:32→22:12)
[2023-04-22] MEDS: MAG SULF 1GM/100ML (MAG RUN) 1 GM in IV 1 EA IV SCH ×2 (08:32→09:32)
[2023-04-22] MEDS: MAGNESIUM OXIDE 400MG TAB (MAG-OX) PO SCH ×2 (08:32→22:13)
[2023-04-22] MEDS: clonazePAM 1 MG TAB PO SCH ×3 (08:33→21:00)
[2023-04-22] MEDS: POLYVINYL ALCOHOL OPHTH SOLN 15ML (LIQUITEARS) OU SCH ×4 (08:33→22:15)
[2023-04-22] MEDS: ENOXAPARIN 40MG/0.4ML SYRINGE (J1650 PER 10MG) SC SCH (08:33)
[2023-04-22] MEDS: risperiDONE 1 MG TAB PO SCH ×2 (08:33→22:12)
[2023-04-22] MEDS ORDERED: POTASSIUM CHLORIDE 10% LIQ 20MEQ/15ML UDC PO ONE (09:00)
[2023-04-22] MEDS: METOPROLOL TART 12.5 MG PER 1/2 TAB PO SCH ×2 (11:52→21:00)
[2023-04-22] MEDS ORDERED: BISACODYL 10MG SUPP PR PRN (12:05)
[2023-04-22] MEDS: SENOKOT S TAB PO SCH ×2 (13:23→22:13)
[2023-04-22 15:38] LABS: HEMATOCRIT 29.7 % (36.0-47.0); HEMOGLOBIN 9.6 g/dl (12.0-15.5)
[2023-04-22] MEDS: MIDODRINE 5 MG TAB PO SCH (17:17)
[2023-04-22] MEDS ORDERED: NS 1,000 ML IV ONE (18:15)
[2023-04-23] MEDS: SODIUM CHLORIDE HYPERTONIC 3% 4ML NEB SOL INH SCH ×4 (02:28→21:14)
[2023-04-23] MEDS: LEVALBUTEROL 1.25MG 0.5ML CONCENTRATE NEB INH SCH ×4 (02:28→21:14)
[2023-04-23 04:00] VITALS: BP 124/61; TEMP 97; O2SAT 93
[2023-04-23] MEDS: LEVOTHYROXINE 88MCG TABLET (0.088 MG) PO SCH (05:44)
[2023-04-23 08:00] VITALS: BP 120/68; TEMP 98.1; O2SAT 93
[2023-04-23] MEDS: ENOXAPARIN 40MG/0.4ML SYRINGE (J1650 PER 10MG) SC SCH (09:00)
[2023-04-23] MEDS: POLYVINYL ALCOHOL OPHTH SOLN 15ML (LIQUITEARS) OU SCH ×4 (09:00→20:05)
[2023-04-23] MEDS: METOPROLOL TART 12.5 MG PER 1/2 TAB PO SCH ×2 (09:01→20:04)
[2023-04-23] MEDS: MAGNESIUM OXIDE 400MG TAB (MAG-OX) PO SCH ×2 (09:01→20:00)
[2023-04-23] MEDS: SENOKOT S TAB PO SCH ×2 (09:01→20:00)
[2023-04-23] MEDS: risperiDONE 1 MG TAB PO SCH ×2 (09:01→20:00)
[2023-04-23] MEDS: buPROPion 75 MG TAB PO SCH ×2 (09:02→20:00)
[2023-04-23] MEDS: MIDODRINE 5 MG TAB PO SCH (09:02)
[2023-04-23] MEDS: clonazePAM 1 MG TAB PO SCH ×2 (09:02→20:00)
[2023-04-23 12:00] VITALS: BP 107/59; TEMP 98.1; O2SAT 95
[2023-04-23 16:00] VITALS: BP 122/85; TEMP 97.5; O2SAT 95
[2023-04-23 19:48] VITALS: BP 100/61; TEMP 99.8; O2SAT 94
[2023-04-24] MEDS: LEVALBUTEROL 1.25MG 0.5ML CONCENTRATE NEB INH SCH ×2 (02:01→09:10)
[2023-04-24] MEDS: SODIUM CHLORIDE HYPERTONIC 3% 4ML NEB SOL INH SCH ×2 (02:01→09:10)
[2023-04-24 04:01] VITALS: BP 109/58; TEMP 98.4; O2SAT 91
[2023-04-24] MEDS: LEVOTHYROXINE 88MCG TABLET (0.088 MG) PO SCH (05:33)
[2023-04-24] MEDS: MAGNESIUM OXIDE 400MG TAB (MAG-OX) PO SCH (10:40)
[2023-04-24 10:41] VITALS: BP 139/92
[2023-04-24] MEDS: METOPROLOL TART 12.5 MG PER 1/2 TAB PO SCH (10:41)
[2023-04-24] MEDS: SENOKOT S TAB PO SCH (10:41)
[2023-04-24] MEDS: buPROPion 75 MG TAB PO SCH (10:41)
[2023-04-24] MEDS: risperiDONE 1 MG TAB PO SCH (10:41)
[2023-04-24] MEDS: clonazePAM 1 MG TAB PO SCH (10:42)
[2023-04-24] MEDS: ENOXAPARIN 40MG/0.4ML SYRINGE (J1650 PER 10MG) SC SCH (10:42)
[2023-04-24] MEDS: POLYVINYL ALCOHOL OPHTH SOLN 15ML (LIQUITEARS) OU SCH (10:42)
[2023-04-24] MEDS ORDERED: ALBU2.5V10 INH (10:54)
[2023-04-24] MEDS ORDERED: SODI3NEB3 INH (10:54)
[2023-04-24] MEDS ORDERED: MAGN400T2 PO (10:54)
[2023-04-24] MEDS ORDERED: CLON1TAB8 PO (10:54)
== END 2023-04-24 14:01 | disposition home or self-care (01) | DRG 871 ==
LOC: M ED 00:31 → EDBD 00:31 → M ED INP 05:09 → ENRESERV 07:25 → M MSPAV 09:43 → M PCU 04-08 11:13
PROVIDERS: ADMIT Internal Medicine; ATTEND Internal Medicine Nephrology
PROC: B246ZZZ Ultrasonography of Right and Left Heart (ICD-10-PCS; principal; 2023-04-12)
PROC: 02HV33Z Insertion of Infusion Device into Superior Vena Cava, Percutaneous Approach (ICD-10-PCS; 2023-04-17)
PROC: 30233N1 Transfusion of Nonautologous Red Blood Cells into Peripheral Vein, Percutaneous Approach (ICD-10-PCS; 2023-04-22)
DX: A41.9 Sepsis, unspecified organism (principal); J69.0 Pneumonitis due to inhalation of food and vomit; J96.01 Acute respiratory failure with hypoxia; E43 Unspecified severe protein-calorie malnutrition; J90 Pleural effusion, not elsewhere classified; B37.0 Candidal stomatitis; J98.11 Atelectasis; R45.851 Suicidal ideations; Z68.1 Body mass index [BMI] 19.9 or less, adult; I47.10 Supraventricular tachycardia, unspecified; I27.20 Pulmonary hypertension, unspecified; F63.9 Impulse disorder, unspecified; F71 Moderate intellectual disabilities; R13.12 Dysphagia, oropharyngeal phase; M48.02 Spinal stenosis, cervical region; M81.0 Age-related osteoporosis without current pathological fracture; E87.6 Hypokalemia; J02.9 Acute pharyngitis, unspecified; N32.81 Overactive bladder; G40.909 Epilepsy, unspecified, not intractable, without status epilepticus; E03.9 Hypothyroidism, unspecified; E83.42 Hypomagnesemia; R45.850 Homicidal ideations; K21.9 Gastro-esophageal reflux disease without esophagitis; F41.9 Anxiety disorder, unspecified; D64.9 Anemia, unspecified; F32.A Depression, unspecified; F43.10 Post-traumatic stress disorder, unspecified; Z98.1 Arthrodesis status; Z79.890 Hormone replacement therapy; Z79.899 Other long term (current) drug therapy; Z88.0 Allergy status to penicillin; Z88.1 Allergy status to other antibiotic agents

== ENCOUNTER 2023-04-27 23:25 | Observation (INO) | payer MEDICARE, MEDICAID ==
[~2023-04-27] VITALS: Ht 165.1 cm; Wt 46.0 kg
[~2023-04-27 23:25] MED LIST changes: +ACET-907 PO; +ACET1TAB55 PO; +ALBU2.5V10 INH; +ALUM320S3 PO; +ALUM45SU PO; +ANIMCHW9 PO; +BUPR75TA69 PO; +CLON1TAB8 PO; +CVS13CRE TOP; +GUAI100L6 PO; +GUAI5EL PO; +IBUP-1114 PO; +IBUP-1720 PO; +MAGN400T2 PO; +MOISCRE4 EXT; +NEOM28OI EXT; +NITR25SU3 PO; +OXYB5TAB11 PO; +PRAZ1CAP PO; +RISP1SOL PO; +RISP1SS PO; +SENN-23 PO; +SODI3NEB3 INH; +SYNT88TA2 PO; +TRAZ-257 PO; +TRIPOIN9 TOP; +ZOLO100T PO; +[UNRECOGNIZED DRUG - CODE] EXT
[2023-04-28] VITALS (10 sets, daily range): BP systolic 130–135; BP diastolic 77–79; TEMP 98.1–98.6; O2SAT 87–98
[2023-04-28] MEDS ORDERED: IPRATROPIUM 0.5MG/ALBUTEROL 2.5MG INH SOL UD 3ML (DUONEB) NEB ONE (00:05)
[2023-04-28 00:14] LABS: BASO % 0.1 % (0.0-1.0); HEMATOCRIT 39.3 % (36.0-47.0); HEMOGLOBIN 12.6 g/dl (12.0-15.5); LYMPH # 0.4 10^3/uL (1.5-5.0); LYMPH % 2.5 % (24.0-44.0); MEAN CORPUSCULAR HEMOGLOBIN 30.9 pg (27.0-33.0); MEAN CORPUSCULAR HGB CONC 32.1 g/dl (32.0-36.5); MEAN CORPUSCULAR VOLUME 96.3 fl (80.0-96.0); MONO # 0.6 10^3/uL (0.0-0.8); MONO % 3.6 % (2.0-8.0); NEUTROPHILS # 14.3 10^3/uL (1.5-8.5); NEUTROPHILS % 93.5 % (36.0-66.0); PLATELET COUNT, AUTOMATED 530 10^3/uL (150-450); RED BLOOD COUNT 4.08 10^6/uL (4.00-5.40); WHITE BLOOD COUNT 15.3 10^3/uL (4.0-10.0)
[2023-04-28 00:26] LABS: ALBUMIN 1.8 G/DL (3.2-5.2); ALKALINE PHOSPHATASE 108 U/L (46-116); ALT/SGPT 28 U/L (7.0-40); AST/SGOT 32 U/L (<34); BILIRUBIN,DIRECT 0.1 MG/DL (<0.4); BILIRUBIN,TOTAL 0.3 MG/DL (0.3-1.2); BLOOD UREA NITROGEN 14 MG/DL (9-23); CALCIUM LEVEL 9.7 MG/DL (8.5-10.1); CARBON DIOXIDE LEVEL 24 MMOL/L (20-31); CHLORIDE LEVEL 104 MMOL/L (98-107); GLOMERULAR FILTRATION RATE > 60.0 (>51); GLUCOSE, FASTING 144 MG/DL (60-100); POTASSIUM SERUM 4.1 MMOL/L (3.5-5.1); SODIUM LEVEL 140 MMOL/L (136-145); TOTAL PROTEIN 8.1 G/DL (5.7-8.2)
[2023-04-28] MEDS ORDERED: NS 1,350 ML in IV 1 EA IV ONE (00:50)
[2023-04-28 00:54] LABS: MAGNESIUM LEVEL 1.9 MG/DL (1.8-2.4)
[2023-04-28 03:24] LABS: CK-MB VALUE MASS 1.3 NG/ML (<3.6)
[2023-04-28 03:26] LABS: CPK CREATINE PHOSPHOKINASE 55 U/L (34-145); MB/CK RELATIVE INDEX 2.36 (< OR =4)
[2023-04-28 03:57] LABS: PROCALCITONIN <0.04 ng/ml
[2023-04-28 04:00] LABS: INR 1.19; PROTHROMBIN TIME 14.8 SECONDS (12.5-14.5)
[2023-04-28 04:01] LABS: PARTIAL THROMBOPLASTIN TIME 32.5 SECONDS (24.8-34.2)
[2023-04-28 04:37] LABS: CK-MB VALUE MASS 1.2 NG/ML (<3.6)
[2023-04-28] MEDS ORDERED: NS 1,000 ML IV ONE ×2 (04:45→05:25)
[2023-04-28 04:51] LABS: MB/CK RELATIVE INDEX 2.72 (< OR =4)
[2023-04-28] MEDS ORDERED: LevoFLOXacin IV 750 MG in IV 1 EA IV ONE (05:50)
[2023-04-28] MEDS ORDERED: MAGN400T35 PO (06:34)
[2023-04-28] MEDS ORDERED: CLON1TAB8 PO (06:34)
[2023-04-28] MEDS ORDERED: SWEEN TOP (06:34)
[2023-04-28] MEDS ORDERED: ALBU2.5V10 INH (06:34)
[2023-04-28] MEDS ORDERED: ALBUTEROL SULFATE 2.5MG/0.5ML INH NEB SOLN NEB PRN (06:35)
[2023-04-28] MEDS ORDERED: HOME MED LIST COMPLETE! XX SCH (06:45)
[2023-04-28] MEDS ORDERED: SODI3NEB INH (06:45)
[2023-04-28] MEDS: ALBUTEROL SULFATE 2.5MG/0.5ML INH NEB SOLN NEB SCH ×3 (08:47→20:50)
[2023-04-28] MEDS: MAGNESIUM OXIDE 400MG TAB (MAG-OX) PO SCH ×2 (10:37→20:32)
[2023-04-28] MEDS: risperiDONE 1 MG TAB PO SCH (10:37)
[2023-04-28] MEDS: LEVOTHYROXINE 88MCG TABLET (0.088 MG) PO SCH (10:38)
[2023-04-28] MEDS: clonazePAM 1 MG TAB PO SCH ×2 (10:38→20:32)
[2023-04-28] MEDS: HEPARIN SOD (PORCINE) 5000UNITS/ML 1ML VIAL/SYRINGE SC SCH ×2 (10:39→20:40)
[2023-04-28] MEDS: buPROPion 75 MG TAB PO SCH ×2 (10:45→20:33)
[2023-04-28] MEDS: SODIUM CHLORIDE HYPERTONIC 3% 4ML NEB SOL INH SCH ×2 (14:00→20:50)
[2023-04-28] MEDS ORDERED: HEPARIN SOD (PORCINE) 5000UNITS/ML 1ML VIAL/SYRINGE SC SCH (14:00)
[2023-04-28] MEDS: METOPROLOL TART 12.5 MG PER 1/2 TAB PO SCH ×2 (15:21→20:32)
[2023-04-28] MEDS ORDERED: FAMOTIDINE 20 MG TAB PO SCH (21:00)
[2023-04-28] MEDS ORDERED: risperiDONE 2 MG TAB PO SCH (21:00)
[2023-04-29] MEDS: SODIUM CHLORIDE HYPERTONIC 3% 4ML NEB SOL INH SCH ×3 (01:43→13:50)
[2023-04-29] MEDS: ALBUTEROL SULFATE 2.5MG/0.5ML INH NEB SOLN NEB SCH ×3 (01:43→13:51)
[2023-04-29 02:50] VITALS: O2SAT 96
[2023-04-29] MEDS: LEVOTHYROXINE 88MCG TABLET (0.088 MG) PO SCH (05:43)
[2023-04-29 05:47] VITALS: BP 122/62; TEMP 97.2; O2SAT 93
[2023-04-29] MEDS ORDERED: LevoFLOXacin IV 750 MG in IV 1 EA IV SCH (06:00)
[2023-04-29 06:10] LABS: BASO % 0.1 % (0.0-1.0); EOS % 0.1 % (0.0-3.0); HEMATOCRIT 29.8 % (36.0-47.0); LYMPH # 1.4 10^3/uL (1.5-5.0); LYMPH % 17.5 % (24.0-44.0); MEAN CORPUSCULAR HEMOGLOBIN 30.8 pg (27.0-33.0); MEAN CORPUSCULAR HGB CONC 32.2 g/dl (32.0-36.5); MEAN CORPUSCULAR VOLUME 95.5 fl (80.0-96.0); MONO # 0.5 10^3/uL (0.0-0.8); MONO % 6.8 % (2.0-8.0); NEUTROPHILS # 5.8 10^3/uL (1.5-8.5); NEUTROPHILS % 75.1 % (36.0-66.0); PLATELET COUNT, AUTOMATED 365 10^3/uL (150-450); RED BLOOD COUNT 3.12 10^6/uL (4.00-5.40); WHITE BLOOD COUNT 7.8 10^3/uL (4.0-10.0)
[2023-04-29 06:12] LABS: HEMOGLOBIN 9.6 g/dl (12.0-15.5)
[2023-04-29 06:32] LABS: BLOOD UREA NITROGEN 8 MG/DL (9-23); CALCIUM LEVEL 8.4 MG/DL (8.5-10.1); CARBON DIOXIDE LEVEL 28 MMOL/L (20-31); CHLORIDE LEVEL 107 MMOL/L (98-107); CREATININE FOR GFR 0.36 MG/DL (0.55-1.30); GLOMERULAR FILTRATION RATE > 60.0 (>51); GLUCOSE, FASTING 83 MG/DL (60-100); POTASSIUM SERUM 3.6 MMOL/L (3.5-5.1); SODIUM LEVEL 144 MMOL/L (136-145)
[2023-04-29 09:00] VITALS: BP 97/57
[2023-04-29] MEDS: METOPROLOL TART 12.5 MG PER 1/2 TAB PO SCH (09:00)
[2023-04-29] MEDS: MAGNESIUM OXIDE 400MG TAB (MAG-OX) PO SCH (09:39)
[2023-04-29] MEDS: clonazePAM 1 MG TAB PO SCH (09:39)
[2023-04-29] MEDS: HEPARIN SOD (PORCINE) 5000UNITS/ML 1ML VIAL/SYRINGE SC SCH (09:40)
[2023-04-29] MEDS: risperiDONE 1 MG TAB PO SCH (09:44)
[2023-04-29] MEDS: buPROPion 75 MG TAB PO SCH (09:44)
[2023-04-29 14:00] VITALS: BP 95/56; TEMP 97.3; O2SAT 94
[2023-04-29 14:30] VITALS: BP 104/60
[2023-04-29] MEDS ORDERED: ALBU2.5V10 INH (15:34)
[2023-04-29] MEDS ORDERED: SODI3NEB INH (15:34)
[2023-04-29] MEDS ORDERED: METO1TAB87 PO (15:34)
== END 2023-04-29 17:40 | disposition home or self-care (01) ==
LOC: EDBD 23:25 → M ED 23:25 → M ED INP 23:26 → M MSPAV 04-28 14:28
PROVIDERS: ADMIT Internal Medicine; ATTEND Internal Medicine Nephrology
DX: J96.01 Acute respiratory failure with hypoxia (principal); J22 Unspecified acute lower respiratory infection; B97.89 Other viral agents as the cause of diseases classified elsewhere; R13.12 Dysphagia, oropharyngeal phase; R63.0 Anorexia; R00.0 Tachycardia, unspecified; F71 Moderate intellectual disabilities; F43.10 Post-traumatic stress disorder, unspecified; F91.9 Conduct disorder, unspecified; F32.A Depression, unspecified; F41.9 Anxiety disorder, unspecified; R06.02 Shortness of breath; N32.81 Overactive bladder; K21.9 Gastro-esophageal reflux disease without esophagitis; G40.909 Epilepsy, unspecified, not intractable, without status epilepticus; E43 Unspecified severe protein-calorie malnutrition; Z88.0 Allergy status to penicillin; Z88.1 Allergy status to other antibiotic agents; Z79.899 Other long term (current) drug therapy
CPT/HCPCS: 36415; 71045; 80048; 80076; 81001; 82550; 82553; 83605; 83735; 83880; 84145; 84484; 85025; 85610; 85730; 86140; 87040; 87486; 87581; 87633; 87798; 92610; 93005; 93041; 94640; 94760; 96361; 96365; 96372; 99285; G0378; J1956

== ENCOUNTER → 2023-05-20 | Outpatient (CLI) | payer MEDICARE, MEDICAID ==
[~2023-05-20] MED LIST changes: +MAGN400T35 PO; +METO1TAB87 PO; +SODI3NEB INH
== END ==
LOC: M RAD 09:14
PROVIDERS: ATTEND Physician Assistant
DX: J18.9 Pneumonia, unspecified organism (principal)

== ENCOUNTER → 2023-08-04 | Outpatient (CLI) | payer MEDICARE, MEDICAID | LOC: M PLAIMG 11:14 | PROVIDERS: ATTEND Internal Medicine Critical Care Medicine | DX: J15.8 Pneumonia due to other specified bacteria (principal); J98.11 Atelectasis; J47.9 Bronchiectasis, uncomplicated; R91.8 Other nonspecific abnormal finding of lung field ==

== ENCOUNTER → 2023-08-26 | Outpatient (CLI) | payer MEDICARE, MEDICAID | LOC: M WUC 10:43 | PROVIDERS: ATTEND Physician Assistant | DX: M79.662 Pain in left lower leg (principal) ==

== ENCOUNTER → 2023-08-28 | Outpatient (CLI) | payer MEDICARE, MEDICAID ==
[2023-08-28 18:19] LABS: BASO % 0.4 % (0.0-1.0); EOS % 0.4 % (0.0-3.0); HEMATOCRIT 37.1 % (36.0-47.0); HEMOGLOBIN 12.3 g/dl (12.0-15.5); LYMPH # 1.8 10^3/uL (1.5-5.0); LYMPH % 33.5 % (24.0-44.0); MEAN CORPUSCULAR HEMOGLOBIN 32.9 pg (27.0-33.0); MEAN CORPUSCULAR HGB CONC 33.2 g/dl (32.0-36.5); MEAN CORPUSCULAR VOLUME 99.2 fl (80.0-96.0); MONO # 0.3 10^3/uL (0.0-0.8); NEUTROPHILS # 3.2 10^3/uL (1.5-8.5); NEUTROPHILS % 59.5 % (36.0-66.0); PLATELET COUNT, AUTOMATED 290 10^3/uL (150-450); RED BLOOD COUNT 3.74 10^6/uL (4.00-5.40); WHITE BLOOD COUNT 5.4 10^3/uL (4.0-10.0)
[2023-08-28 18:40] LABS: TOTAL IRON BINDING CAPACITY 304 UG/DL (250-425)
[2023-08-28 18:41] LABS: ALBUMIN 3.7 G/DL (3.2-5.2); ALKALINE PHOSPHATASE 79 U/L (46-116); ALT/SGPT 33 U/L (7.0-40); AST/SGOT 25 U/L (<34); BILIRUBIN,TOTAL 0.3 MG/DL (0.3-1.2); BLOOD UREA NITROGEN 15 MG/DL (9-23); CARBON DIOXIDE LEVEL 28 MMOL/L (20-31); CHLORIDE LEVEL 107 MMOL/L (98-107); CREATININE FOR GFR 0.41 MG/DL (0.55-1.30); FERRITIN 61.7 NG/ML (7.3-270.7); GLOMERULAR FILTRATION RATE > 60.0 (>51); GLUCOSE, FASTING 172 MG/DL (60-100); IRON (FE) 119 UG/DL (50-170); MAGNESIUM LEVEL 1.7 MG/DL (1.8-2.4); PERCENT SATURATION 39.1 % (13.2-45.0); POTASSIUM SERUM 3.9 MMOL/L (3.5-5.1); SODIUM LEVEL 141 MMOL/L (136-145); TOTAL 25(OH) VITAMIN D 23.6 NG/ML (20.0-100.0); TOTAL PROTEIN 6.6 G/DL (5.7-8.2)
[2023-08-28 18:42] LABS: FOLATE 23.59 NG/ML (>5.4); VITAMIN B12 LEVEL 680 PG/ML (211-911)
[2023-08-28 18:43] LABS: FREE T4 1.37 NG/DL (0.89-1.76)
[2023-08-28 18:48] LABS: APPEARANCE, URINE TURBID (CLEAR); BACTERIA, URINE AUTO NEGATIVE (NEGATIVE); BILIRUBIN, URINE AUTO NEGATIVE (NEGATIVE); BLOOD, URINE BLOOD NEGATIVE (NEGATIVE); COLOR, URINE AMBER (YELLOW); GLUCOSE, URINE (UA) AUTO 1+ mg/dL (NEGATIVE); KETONE, URINE AUTO TRACE mg/dL (NEGATIVE); LEUKOCYTE ESTERASE, URINE AUTO NEGATIVE (NEGATIVE); MUCUS, URINE MODERATE (NEGATIVE); NITRITE, URINE AUTO NEGATIVE (NEGATIVE); PROTEIN, URINE AUTO 1+ mg/dL (NEGATIVE); RBC, URINE AUTO 0 /HPF (0-3); SPECIFIC GRAVITY URINE AUTO 1.031 (1.002-1.035); SQUAMOUS EPITHELIAL CELL UR AU 3 /HPF (0-6); UROBILINOGEN, URINE AUTO 0.2 mg/dL (0.0-2.0); WBC, URINE AUTO 0 /HPF (0-3)
== END ==
LOC: M WUC 10:15
PROVIDERS: ATTEND Physician Assistant
DX: E83.42 Hypomagnesemia (principal); R93.89 Abnormal findings on diagnostic imaging of other specified body structures; G47.34 Idiopathic sleep related nonobstructive alveolar hypoventilation; R64 Cachexia

== ENCOUNTER → 2023-09-07 | Outpatient (CLI) | payer MEDICARE, MEDICAID ==
[~2023-09-07] MED LIST changes: -OXYB5TAB11 PO; +OXYB5TAB14 PO
== END ==
LOC: M SLEEP 20:00
PROVIDERS: ATTEND Internal Medicine Critical Care Medicine
DX: R06.83 Snoring (principal)

== ENCOUNTER 2025-06-13 09:05 | Day surgery (SDC) | payer MEDICARE, MEDICAID ==
[~2025-06-13] VITALS: Ht 167.6 cm; Wt 57.2 kg
[~2025-06-13 09:05] MED LIST changes: +DIVA-41; -DIVA500T94; +VITA200012 PO
[2025-06-13] MEDS ORDERED: LIDOCAINE 2% 100 MG/5 ML SDV (FOR ANES.) As Ordered ONE (09:51)
[2025-06-13] MEDS ORDERED: PHENYLephrine 500MCG 5ML (100MCG/ML) SYRINGE As Ordered ONE (10:29)
[2025-06-13 11:04] VITALS: TEMP 97.9
[2025-06-13 11:20] VITALS: BP 121/60; O2SAT 99
== END 2025-06-13 11:32 | disposition home or self-care (01) ==
LOC: M OPP 09:05
PROVIDERS: ATTEND Internal Medicine Gastroenterology
DX: Z12.11 Encounter for screening for malignant neoplasm of colon (principal); R19.5 Other fecal abnormalities; D12.3 Benign neoplasm of transverse colon; D12.2 Benign neoplasm of ascending colon; D12.4 Benign neoplasm of descending colon; K63.89 Other specified diseases of intestine; Q43.8 Other specified congenital malformations of intestine; Z88.0 Allergy status to penicillin; Z88.8 Allergy status to other drugs, medicaments and biological substances; Z79.899 Other long term (current) drug therapy; R56.9 Unspecified convulsions
CPT/HCPCS: 45381; 45385; 88305; J2371

== ENCOUNTER → 2025-07-03 | Outpatient (CLI) | payer MEDICARE, MEDICAID | LOC: M CARPUL 09:13 | PROVIDERS: ATTEND Internal Medicine Critical Care Medicine | DX: I27.20 Pulmonary hypertension, unspecified (principal); I08.1 Rheumatic disorders of both mitral and tricuspid valves ==